=== PATIENT | male | born 1940 | race Caucasian/White ===

== ENCOUNTER 2016-11-25 21:33 | Inpatient (IN) | payer MEDICARE ==
[~2016-11-25] VITALS: Ht 190.5 cm; Wt 69.9 kg
--- NOTE | 2016-11-25 21:50 | PHYS DOC ---
Adult General Chief Complaint Chief Complaint: MECHANICAL FALL HPI HPI Patient is a 76 year old male presenting to the emergency department for evaluation of a left femoral neck fracture that was diagnosed this evening at approximately 6 PM. Reportedly patient fell down from a standing height and landed on his knees that had been complaining of more pain and not acting at his baseline. It appears that there is 3 x-rays done of his left knee one of his left hip and one of his pelvis. Patient has baseline dementia andis name but does not know much else and cannot provide any significant history. Review of Systems Review of Systems Unable to obtain due to dementia Current Medications Current Medications Current Medications Medications (Trade) Dose Ordered Sig/Dejah Start Time Stop Time Status Last Admin Dose Admin Diphtheria/ Tetanus/Acell Pertussis (Boostrix) 0.5 ml ONCE ONCE 11/25/16 22:00 11/25/16 22:01 DC 11/25/16 22:12 0.5 ML Allergies Allergies Allergies Coded Allergies Type Severity Reaction Last Updated Verified No Known Drug Allergies 11/25/16 No Physical Exam Physical Exam Constitutional: Well developed, well nourished, no acute distress, non-toxic appearance. [] HENT: Normocephalic, atraumatic Eyes: PERRLA, EOMI, conjunctiva normal, no discharge. [] Neck: Normal range of motion, no tenderness, supple, no stridor. [] Cardiovascular:Heart rate regular rhythm, no murmur [] Lungs & Thorax: Bilateral breath sounds clear to auscultation [] Abdomen: Bowel sounds normal, soft, no tenderness, no masses, no pulsatile masses. [] Skin: Skin breakdown to top of second toe and left lateral foot Back: No tenderness, no CVA tenderness. [] Extremities: Both DP pulses weak but palpable. His left foot has significant wounds especially on the top of his second toe, there is a very bad smell to it with some drainage. Pain to palpation of left hip. Neurologic: Alert and oriented X1, moves all extremities Current Patient Data Vital Signs Vital Signs Date Time Temp Pulse Resp B/P (MAP) Pulse Ox O2 Delivery O2 Flow Rate FiO2 11/25/16 21:35 99.1 97 14 148/68 (94) 100 Room Air 99.1 Lab Values Laboratory Tests Test 11/25/16 21:55 White Blood Count 6.8 x10^3/uL (4.0-11.0) Red Blood Count 2.85 x10^6/uL (4.30-5.70) L Hemoglobin 9.2 g/dL (13.0-17.5) L Hematocrit 27.4 % (39.0-53.0) L Mean Corpuscular Volume 96 fL (79-100) Mean Corpuscular Hemoglobin 32 pg (25-35) Mean Corpuscular Hemoglobin Concent 34 g/dL (31-37) Red Cell Distribution Width 14.7 % (11.5-14.5) H Platelet Count 174 x10^3/uL (140-400) Neutrophils (%) (Auto) 73 % (31-73) Lymphocytes (%) (Auto) 13 % (24-48) L Monocytes (%) (Auto) 11 % (0-9) H Eosinophils (%) (Auto) 2 % (0-3) Basophils (%) (Auto) 1 % (0-3) Neutrophils # (Auto) 5.0 x10^3uL (1.8-7.7) Lymphocytes # (Auto) 0.9 x10^3/uL (1.0-4.8) L Monocytes # (Auto) 0.8 x10^3/uL (0.0-1.1) Eosinophils # (Auto) 0.2 x10^3/uL (0.0-0.7) Basophils # (Auto) 0.0 x10^3/uL (0.0-0.2) Prothrombin Time 13.9 SEC (11.7-14.0) Prothrombin Time INR 1.1 (0.8-1.1) PTT 30 SEC (24-38) Sodium Level 138 mmol/L (136-145) Potassium Level 5.4 mmol/L (3.5-5.1) H Chloride Level 102 mmol/L (98-107) Carbon Dioxide Level 31 mmol/L (21-32) Anion Gap 5 (6-14) L Blood Urea Nitrogen 48 mg/dL (8-26) H Creatinine 1.4 mg/dL (0.7-1.3) H Estimated GFR (Cockcroft-Gault) 49.1 BUN/Creatinine Ratio 34 (6-20) H Glucose Level 144 mg/dL (70-99) H Lactic Acid Level 1.5 mmol/L (0.4-2.0) Calcium Level 8.7 mg/dL (8.5-10.1) Magnesium Level 2.4 mg/dL (1.8-2.4) Total Bilirubin 0.2 mg/dL (0.2-1.0) Aspartate Amino Transferase (AST) 18 U/L (15-37) Alanine Aminotransferase (ALT) 15 U/L (16-63) L Alkaline Phosphatase 88 U/L (46-116) Creatine Kinase 200 U/L (39-308) Total Protein 6.8 g/dL (6.4-8.2) Albumin 3.3 g/dL (3.4-5.0) L Albumin/Globulin Ratio 0.9 (1.0-1.7) L Laboratory Tests 11/25/16 21:55 Laboratory Tests 11/25/16 21:55 EKG EKG [] Radiology/Procedures Radiology/Procedures Left hip fracture on the left hip x-ray Left foot x-ray showed no abnormality Chest x-ray showed prominent aortic arch but no obvious free air pneumothorax or opacity Course & Med Decision Making Course & Med Decision Making Patient with fractured left hip. It sounds like he uses a walker some of the time per the paperwork that they sent the jail did not call report as he was supposed to be sent to [facility] but ended up coming here for unclear reasons. Patient will be admitted and treat his toe infection and consult orthopedics regarding his hip fracture. Family is not present at time of presentation. Daughter ended up coming and I spoke to her about Dr. Anne's recommendations. He said that if the patient is in significant pain he would recommend fixing the fracture but he would go and talk to daughter tomorrow morning and possibly had the patient on for a case tomorrow morning. Patient admitted in stable condition and was given Ancef for his left foot infection. Dragon Disclaimer Dragon Disclaimer This electronic medical record was generated, in whole or in part, using a voice recognition dictation system. Departure Departure Impression: Primary Impression: Hip fracture, left Additional Impressions: Infection of toe Renal insufficiency Dementia Disposition: ADMITTED INPATIENT Admitting Physician: Lucy Michaels Condition: STABLE Problem Qualifiers Primary Impression: Hip fracture, left Encounter type: initial encounter Fracture type: closed Qualified Codes: S72.002A - Fracture of unspecified part of neck of left femur, initial encounter for closed fracture PANDA MAK DO Nov 25, 2016 21:50
[2016-11-25 22:00] LABS: BASO % 1 % (0-3); EOS % 2 % (0-3); HEMATOCRIT 27.4 % (39.0-53.0); HEMOGLOBIN 9.2 g/dL (13.0-17.5); LYMPH # 0.9 x10^3/uL (1.0-4.8); LYMPH % 13 % (24-48); MEAN CORPUSCULAR HEMOGLOBIN 32 pg (25-35); MEAN CORPUSCULAR HGB CONC 34 g/dL (31-37); MEAN CORPUSCULAR VOLUME 96 fL (79-100); MONO % 11 % (0-9); NEUT % 73 % (31-73); PLATELET COUNT 174 x10^3/uL (140-400); RED BLOOD COUNT 2.85 x10^6/uL (4.30-5.70); RED CELL DISTRIBUTION WIDTH 14.7 % (11.5-14.5); WHITE BLOOD COUNT 6.8 x10^3/uL (4.0-11.0)
[2016-11-25] MEDS ORDERED: DIPHTH,PERTUSS(ACELL),TET TOX 0.5 ML DISP.SYRIN. VAX IM ONE (22:00)
[2016-11-25 22:09] LABS: INR 1.1 (0.8-1.1); PROTHROMBIN TIME PATIENT 13.9 SEC (11.7-14.0)
[2016-11-25 22:15] LABS: CALCIUM 8.7 mg/dL (8.5-10.1); CREATININE 1.4 mg/dL (0.7-1.3); GFR 49.1; POTASSIUM 5.4 mmol/L (3.5-5.1)
[2016-11-25 22:21] LABS: ALBUMIN 3.3 g/dL (3.4-5.0); ALBUMIN/GLOBULIN RATIO 0.9 (1.0-1.7); MAGNESIUM 2.4 mg/dL (1.8-2.4); TOTAL BILIRUBIN 0.2 mg/dL (0.2-1.0); TOTAL PROTEIN 6.8 g/dL (6.4-8.2)
[2016-11-25] MEDS ORDERED: fentaNYL PF VIAL 100 MCG/2 ML VIAL IV PRN (22:30)
[2016-11-25] MEDS ORDERED: ONDANSETRON PF 4 MG/2 ML VIAL. IV PRN (22:30)
[2016-11-25] MEDS: IV NORMAL SALINE 1000ML BAG 1,000 ML IV SCH (22:47)
[2016-11-25 23:45] VITALS: BP 124/61
[2016-11-26] VITALS (16 sets, daily range): BP systolic 100–144; BP diastolic 47–75
--- NOTE | 2016-11-26 03:39 | ACF ---
Admission Forms Criteria MUSCULOSKELETAL DISEASE GRG Clinical Indications for Admission to Inpatient Care (Place 'X' for any and all applicable criteria): Hospital admission is needed for appropriate care of the patient because of 1 or more of the following: [X]I. Fracture, dislocation, or other musculoskeletal injury requiring inpatient care(medical) as indicated by 1 or more of the following(4)(5)(6)(7) [ ]a) Vertebral fracture requiring observation for instability or neurologic compromise (8) [ ]b) Compartment syndrome (proven or cannot be ruled out during observation level of care) (9) [ ]c) Limb-threatening injury [ ]d) Major injury requiring inpatient stabilization such as traction initiation or external fixation before internal fixation or closure of complex or open fracture [X]e) Major injury requiring inpatient treatment after emergency or observation level care (as appropriate) [ ]f) Severe pain requiring acute inpatient management [ ]g) Injury with suspicion of abuse or neglect (eg., child, dependent elderly) [ ]II. Newly diagnosed or suspected bone, joint, or orthopedic device infection (e.g., osteomyelitis, septic arthritis) needing 1 or more of the following(1)(2)(3) [ ]a) IV antibiotics that cannot be initiated in other than inpatient setting (e.g., patient too unstable or home infusion not available) [ ]b) Device removal or replacement [ ]c) Bone or soft tissue debridement [ ]d) Joint drainage (drain placement or repetitive aspirations) [ ]III. Severe rheumatologic disease (e.g., systemic lupus erythematosus, rheumatoid arthritis) with complications or comorbidities (Also use Optimal Recovery Care Criteria or General Recovery Criteria as appropriate on the basis of predominant condition), including 1 or more of the following( 10)(11)(12)(13) [ ]a) Severe infection (e.g., TESTS SUPERINTENDENT infection, sepsis) (14) [ ]b) Respiratory complications, including 1 or more of the following : [ ]i) Pleural effusion with respiratory compromise [ ]ii) Pulmonary hypertension with congestive failure [ ]iii) Respiratory failure [ ]iv) Pulmonary hemorrhage (15) [ ]c) Hematologic disease, including 1 or more of the following: [ ]i) Coagulopathy with bleeding [ ]ii) Thrombosis with hypercoagulable state [ ]iii) Thrombotic thrombocytopenic purpura [ ]d) Cerebritis with seizures, psychosis, or other severe abnormalities [ ]e) Vertebral destruction with monitoring needed for cervical myelopathy& possible respiratory compromise [ ]f) Exacerbation that requires inpatient treatment (e.g., intravenous immunosuppression) (16) [ ]g) Acute renal failure [ ]h) Cerebritis with seizures, psychosis, Altered mental status, or other neurologic abnormalities [ ]i) Pericardial effusion with tamponade [ ]j) Vertebral destruction, with monitoring needed for cervical myelopathy and possible respiratory compromise [ ]IV. Severe vasculitis with complications or comorbidities (Also use Optimal Recovery Care Criteria General Recovery Criteria as appropriate on the basis of predominant condition), including 1 or more of the following(11)(12)(17)(18)(19)(20) [ ]a) Exacerbation that requires inpatient treatment (e.g., intravenous immunosuppression) (19)(21) [ ]b) Pulmonary hemorrhage (15) [ ]c) TESTS SUPERINTENDENT vasculitis with seizures, psychosis, Altered mental status that is severe or persistent, or other severe abnormalities (22) [ ]d) Cerebral infarction [ ]e) Gastrointestinal ischemia [ ]f) Gangrene or threatened amputation [ ]g) Renal failure (16) [ ]h) Other significant complications of vasculitis ( eg., tissue or organ ischemia, organ dysfunction ) [ ]V. Severe myopathy as indicated by 1 or more of the following (28)(29) [ ]a) New onset of airway compromise or inability to swallow [ ]b) Respiratory deterioration with observation needed for impending respiratory failure [ ]c) Exacerbation that requires inpatient treatment (e.g., intravenous immunosuppression) [ ]. Severe crystal gout (arthropathy) indicated by 1 or more of the following (23)(24) [ ]a) Severe pain requiring acute inpatient management [ ]b) Exacerbation that requires inpatient treatment (e.g., intravenous treatment) [ ]VII.Rhabdomyolysis and 1 or more of the following (25)(26)(27) [ ]a) Acute renal failure [ ]b) Need for intravenous hydration after emergency or observation level care (as appropriate) [ ]c) Inability to maintain oral hydration [ ]d) Change in mental status [ ]e) Electrolyte abnormality that remains after emergency or observation level care (as appropriate) [ ]VIII Post amputation complication, as indicated by ANY ONE of the following [ ]a) Infection [ ]b) Dehiscence [ ]c) Myodesis failure [ ]IX. Severe pain requiring acute inpatient management due to musculoskeletal condition [ ]X. Musculoskeletal Disease and ALL of the following: [ ]a) Symptom or finding for which emergency and observation care have failed or are not considered appropriate (Use General Criteria: Observation Care as appropriate) [ ]b) Presence of ANY ONE of the following [ ]i) A General Admission Criteria [ ]ii) A Pediatric General Admission Criteria The original [facility] [employer] content created by [facility] has been revised. The portions of the content which have been revised are identified through the use of italic text or in bold, and [facility] has neither reviewed nor approved the modified material. All other unmodified content is copyright [facility]. Please see references footnoted in the original [facility] edition 2016 Admission Criteria Met?: Yes JOANN GOMEZ Nov 26, 2016 03:39
[2016-11-26] MEDS ORDERED: NAPR500T3 PO (03:43)
[2016-11-26] MEDS ORDERED: TRAZ50TA15 PO (03:43)
[2016-11-26] MEDS ORDERED: ACET325T9 PO (03:43)
[2016-11-26] MEDS ORDERED: HYDR-2758 PO (03:43)
[2016-11-26] MEDS ORDERED: RIVA1PAT12 TD (03:43)
[2016-11-26] MEDS ORDERED: MAGN400O7 PO (03:43)
[2016-11-26] MEDS ORDERED: FERR324T2 PO (03:43)
[2016-11-26] MEDS ORDERED: POLY15DR28 OP (03:43)
[2016-11-26] MEDS ORDERED: ACET500T68 PO (03:43)
[2016-11-26] MEDS ORDERED: DEXT1CAP PO (03:43)
[2016-11-26] MEDS ORDERED: VERA240C2 PO (03:43)
[2016-11-26] MEDS ORDERED: LOPE2CAP PO (03:43)
[2016-11-26] MEDS ORDERED: GABA-585 PO (03:43)
[2016-11-26] MEDS ORDERED: SERT50TA PO (03:43)
[2016-11-26] MEDS ORDERED: SENN8.6T4 PO (03:43)
[2016-11-26] MEDS ORDERED: QUET25TA5 PO (03:43)
[2016-11-26] MEDS ORDERED: FAMO20TA5 PO (03:43)
[2016-11-26 04:56] LABS: BASO % 1 % (0-3); EOS % 3 % (0-3); HEMATOCRIT 23.5 % (39.0-53.0); HEMOGLOBIN 7.8 g/dL (13.0-17.5); LYMPH # 1.2 x10^3/uL (1.0-4.8); LYMPH % 20 % (24-48); MEAN CORPUSCULAR HEMOGLOBIN 32 pg (25-35); MEAN CORPUSCULAR HGB CONC 33 g/dL (31-37); MEAN CORPUSCULAR VOLUME 95 fL (79-100); MONO % 11 % (0-9); NEUT % 66 % (31-73); PLATELET COUNT 149 x10^3/uL (140-400); RED BLOOD COUNT 2.47 x10^6/uL (4.30-5.70); RED CELL DISTRIBUTION WIDTH 14.8 % (11.5-14.5); WHITE BLOOD COUNT 5.9 x10^3/uL (4.0-11.0)
[2016-11-26 05:17] LABS: CALCIUM 7.9 mg/dL (8.5-10.1); CREATININE 1.3 mg/dL (0.7-1.3); GFR 53.5; POTASSIUM 4.6 mmol/L (3.5-5.1)
[2016-11-26] MEDS ORDERED: IV RINGERS,LACTATED 1000ML 1,000 ML IV SCH (07:57)
[2016-11-26] MEDS ORDERED: MORPHINE SULFATE 2 MG/ML DISP.SYRIN. IV PRN (08:00)
[2016-11-26] MEDS ORDERED: LIDOCAINE 1% 1 ML SYRINGE. ID PRN (08:00)
[2016-11-26] MEDS ORDERED: fentaNYL PF VIAL 100 MCG/2 ML VIAL IV PRN ×2 (08:00)
[2016-11-26] MEDS ORDERED: HYDROmorphone 2 MG/ML VIAL IV PRN (08:00)
[2016-11-26] MEDS ORDERED: PROCHLORPERAZINE 10 MG/2 ML VIAL. IV PRN (08:00)
--- NOTE | 2016-11-26 08:06 | RAD ---
Left foot 3 views. History: Left foot pain after a fall 3 views were taken of the left foot. There are flexion deformities of the toes. There is no acute fracture. There is no other acute osseous abnormality. Impression: 1. Flexion deformities of the toes. 2. No acute fracture.
--- NOTE | 2016-11-26 08:08 | RAD ---
Left hip 2 views with one view pelvis. History: Pain after a fall. AP view was taken of the pelvis. There is a total joint prosthesis on the right in good position. There is no pelvic fracture noted. There is degenerative change and scoliosis in the lower lumbar spine. AP and lateral views were taken of the left hip. There is a comminuted intertrochanteric fracture with angulation and displacement. Lesser trochanter is an isolated fracture fragment. Impression: 1. Displaced angulated comminuted intertrochanteric fracture left hip
--- NOTE | 2016-11-26 08:09 | RAD ---
Portable AP chest. History: Fall, left hip fracture AP view was taken of the chest. Lungs are free of infiltrates. Heart is normal in size. The patient's taken a poor inspiration. There is no effusion. Impression: 1. No acute infiltrates.
[2016-11-26] MEDS ORDERED: ONDANSETRON PF 4 MG/2 ML VIAL. IV PRN (08:38)
[2016-11-26] MEDS ORDERED: LOPERAMIDE 2 MG CAPSULE PO PRN (08:45)
[2016-11-26] MEDS ORDERED: MAGNESIUM HYDROXIDE 2,400 MG/30 ML ORAL.SUSP. PO PRN (08:45)
[2016-11-26] MEDS ORDERED: NAPROXEN 500 MG TABLET PO PRN (08:45)
[2016-11-26] MEDS ORDERED: ACETAMINOPHEN 500 MG TABLET PO PRN (08:45)
[2016-11-26] MEDS: QUINIDINE PO SCH ×2 (09:00→21:00)
[2016-11-26] MEDS: FERROUS SULFATE 325 MG TABLET. PO SCH ×2 (09:00→17:34)
[2016-11-26] MEDS: SERTRALINE 50 MG TABLET. PO SCH (09:00)
[2016-11-26] MEDS: GABAPENTIN 100 MG CAPSULE. PO SCH ×3 (09:00→21:55)
[2016-11-26] MEDS: SENNOSIDES 8.6 MG TABLET PO SCH (09:00)
[2016-11-26] MEDS: HYDROcodone/APAP 5/325MG 1 TAB TABLET PO SCH ×2 (09:00→21:54)
[2016-11-26] MEDS: POLYVINYL ALCOHOL 1.4% OPHTH SOLUTION 15ML BOTTLE. OU SCH ×3 (09:00→21:00)
[2016-11-26] MEDS: VERAPAMIL SR 180 MG TABLET.ER. PO SCH ×2 (09:00→21:00)
[2016-11-26] MEDS: DEXTROMETHORPHAN HBR PO SCH ×2 (09:00→21:00)
--- NOTE | 2016-11-26 09:21 | PDOC1 ---
History and Physical Date of Admission Date of Admission DATE: 11/26/16 TIME: 09:15 Identification/Chief Complaint Chief Complaint fall in SNU Problems: Source Source: Caregiver, Chart review History of Present Illness History of Present Illness DTr at bedside,. Pt has advanced Lewy body dementia, SNU resident, fell in SNU, unclear mechanism late last night. No head trauma, Severe pain hip/left LE since fall, even in bed. Mostly wheelchair bound, feeds himself prior to admit, But now just in bed writhing in pain Dw ortho, planned for sx for comfort, Apparently might have been on hospice in SNU, HE is DNR DNI Dtr aware of risks and benefits of sx - including post op delirium, infection, clots, cardiac issues and even , She is fully aware and agrees to proceed Pt has hx atrial fib, 3 yrs ago, was prev on warf but off AC now,(likely bec of high risk fall and now NSR).. NSR now. Severe dementia, ROS unobtainable NO hx CAD, DM. Carl pinto HTN, Never smoker MOderate to high risk for contemplated procedure, no pre op testing needed, ok to proceed with ortho sx later addendum; pt had a prolonged 1.5 mos hospital stay after his total hip sx in [facility] some yrs ago - so dtr aware of the possible complications Past Medical History Cardiovascular: AFIB, HTN CENTRAL NERVOUS SYSTEM: Dementia Past Surgical History Past Surgical History: Total hip replacement Family History Family History: Hypertension Social History Smoke: No ALCOHOL: none Drugs: None Current Problem List Problem List Problems Medical Problems: (1) Dementia Status: Acute (2) Hip fracture, left Status: Acute (3) Infection of toe Status: Acute (4) Renal insufficiency Status: Acute Problems: Current Medications Current Medications Current Medications Diphtheria/ Tetanus/Acell Pertussis (Boostrix) 0.5 ml ONCE ONCE VAX IM Last administered on 11/25/16t 22:12; Start 11/25/16 at 22:00; Stop 11/25/16 at 22:01 ; Status DC Ondansetron HCl (Zofran) 4 mg PRN Q8HRS PRN IV NAUSEA/VOMITING; Start 11/25/16 at 22:30; Stop 11/26/16 at 08:41; Status DC Fentanyl Citrate (Fentanyl 2ml Vial) 50 mcg PRN Q2HR PRN IV PAIN Last administered on 11/25/16 23:19; Start 11/25/16 at 22:30; Stop 11/26/16 at 22:29 Sodium Chloride 1,000 ml @ 75 mls/hr [id number] IV Last administered on 22:47; Start 11/25/16 at 22:30; Stop 11/26/16 at 22:29 Cefazolin Sodium/ Dextrose 50 ml @ 100 mls/hr 1X ONCE IV Last administered on 11/25/16 22:47; Start 11/25/16 at 22:45; Stop 11/25/16 at 23:14; Status DC Fentanyl Citrate (Fentanyl 2ml Vial) 25 mcg PRN Q5MIN PRN IV MILD PAIN; Start 11/26/16 at 08:00; Stop 11/26/16 at 18:00 Fentanyl Citrate (Fentanyl 2ml Vial) 50 mcg PRN Q5MIN PRN IV MODERATE PAIN; Start 11/26/16 at 08:00; Stop 11/26/16 at 18:00 Morphine Sulfate 1 mg PRN Q10MIN PRN IV SEVERE PAIN; Start 11/26/16 at 08:00; Stop 11/26/16 at 18:00 Ringer's Solution 1,000 ml @ 30 mls/hr Q24H IV ; Start 11/26/16 at 07:57; Stop 11/26/16 at 19:56 Lidocaine HCl 2 ml PRN 1X PRN ID PRIOR TO IV START; Start 11/26/16 at 08:00; Stop 11/26/16 at 18:00 Hydromorphone HCl (Dilaudid) 0.5 mg PRN Q10MIN PRN IV SEV PAIN, Second choice; Start 11/26/16 at 08:00; Stop 11/26/16 at 18:00 Prochlorperazine Edisylate (Compazine) 5 mg PACU PRN PRN IV NAUSEA, MRX1; Start 11/26/16 at 08:00; Stop 11/26/16 at 18:00 Ondansetron HCl (Zofran) 4 mg PRN Q6HRS PRN IV NAUSEA/VOMITING; Start 11/26/16 at 08:38; Stop 11/27/16 at 08:37 Acetaminophen (Tylenol) 500 mg PRN Q6HRS PRN PO MILD PAIN / TEMP; Start at 08:45 Famotidine (Pepcid) 20 mg HS PO ; Start 11/26/16 at 21:00 Gabapentin (Neurontin) 100 mg TID PO ; Start 11/26/16 at 09:00 Acetaminophen/ Hydrocodone Bitart (Lortab 5/325) 1 tab BID PO ; Start 11/26/16 at 09:00 Loperamide HCl (Imodium) 2 mg PRN BID PRN PO DIARRHEA; Start 11/26/16 at 08:45 Magnesium Hydroxide (Milk Of Magnesia) 400 mg PRN DAILY PRN PO CONSTIPATION; Start 11/26/16 at 08:45 Naproxen (Naprosyn) 500 mg PRN BID PRN PO HEADACHE; Start 11/26/16 at 08:45 Artificial Tears (Artificial Tears) 1 drop TID OU ; Start 11/26/16 at 09:00 Quetiapine Fumarate (SEROquel) 25 mg QHS PO ; Start 11/26/16 at 21:00 Rivastigmine (Exelon) 1 patch DAILY TD ; Start 11/26/16 at 09:00 Sennosides (Senna) 8.6 mg DAILY PO ; Start 11/26/16 at 09:00 Sertraline HCl (Zoloft) 50 mg DAILY PO ; Start 11/26/16 at 09:00 Non-Formulary Medication 1 each BID PO ; Start 11/26/16 at 09:00; Status UNV Ferrous Sulfate (Feosol) 325 mg BIDWMEALS PO ; Start 11/26/16 at 09:00 Verapamil HCl (Calan Sr) 180 mg BID PO ; Start 11/26/16 at 09:00 Active Scripts Active Reported Naproxen 500 Mg Tablet 1 Tab PO PRN BID PRN Milk Of Magnesia (Magnesium Hydroxide) 400 Mg/5 Ml Oral.susp 400 Mg PO PRN DAILY PRN Loperamide (Loperamide Hcl) 2 Mg Capsule 2 Mg PO PRN BID PRN Acetaminophen 500 Mg Tablet 1 Tab PO Q6HRS Verapamil Er (Verapamil Hcl) 240 Mg Cap24h.pel 180 Mg PO DAILY Trazodone Hcl 50 Mg Tablet 1 Tab PO QHS Zoloft (Sertraline Hcl) 50 Mg Tablet 1 Tab PO DAILY Senexon (Sennosides) 8.6 Mg Tablet 8.6 Mg PO DAILY Rivastigmine 1 Each Patch.td24 1 Each TD DAILY Seroquel (Quetiapine Fumarate) 25 Mg Tablet 1 Tab PO QHS Nuedexta 20-10 Mg Capsule (Dextromethorphan Hbr/Quinidine) 1 Each Capsule 1 Each PO BID Liquitears (Polyvinyl Alcohol) 15 Ml Drops 15 Ml OP TID Hydrocodone-Apap 5-325 (Hydrocodone Bit/Acetaminophen) 1 Each Tablet 1 Tab PO BID Gabapentin 100 Mg Capsule 100 Mg PO TID Ferrous Gluconate 324 Mg Tablet 324 Mg PO TIDWMEALS Famotidine 20 Mg Tablet 20 Mg PO HS Tylenol (Acetaminophen) 325 Mg Tablet 2 Tab PO BID Allergies Allergies: Coded Allergies: No Known Drug Allergies (Unverified , 11/25/16) ROS Review of System unobtainable - severe dementia Physical Exam General: mild distress, Other (from pain, mouth breather) HEENT: EOMI Lungs: Clear to auscultation, Normal air movement Heart: S1S2, RRR, no thrills, no rubs, no gallops, no murmurs Cardiovascular: S1, S2 Abdomen: Normal bowel sounds, Soft, No tenderness, No hepatosplenomegaly, No masses Male Genitals Exam: normal genitalia, normal prostate PELVIC: Nml ext genitalia Extremities: Other (left hip externally rotated) Skin: No rashes, No breakdown, No significant lesion Vitals Vitals Vital Signs Date Time Temp Pulse Resp B/P (MAP) Pulse Ox O2 Delivery O2 Flow Rate FiO2 11/26/16 07:00 98.8 83 18 100/53 (69) 92 Room Air 98.8 Labs Labs Laboratory Tests Test 11/25/16 21:55 11/26/16 03:55 White Blood Count 6.8 x10^3/uL (4.0-11.0) 5.9 x10^3/uL (4.0-11.0) Red Blood Count 2.85 x10^6/uL (4.30-5.70) 2.47 x10^6/uL (4.30-5.70) Hemoglobin 9.2 g/dL (13.0-17.5) 7.8 g/dL (13.0-17.5) Hematocrit 27.4 % (39.0-53.0) 23.5 % (39.0-53.0) Mean Corpuscular Volume 96 fL (79-100) 95 fL (79-100) Mean Corpuscular Hemoglobin 32 pg (25-35) 32 pg (25-35) Mean Corpuscular Hemoglobin Concent 34 g/dL (31-37) 33 g/dL (31-37) Red Cell Distribution Width 14.7 % (11.5-14.5) 14.8 % (11.5-14.5) Platelet Count 174 x10^3/uL (140-400) 149 x10^3/uL (140-400) Neutrophils (%) (Auto) 73 % (31-73) 66 % (31-73) Lymphocytes (%) (Auto) 13 % (24-48) 20 % (24-48) Monocytes (%) (Auto) 11 % (0-9) 11 % (0-9) Eosinophils (%) (Auto) 2 % (0-3) 3 % (0-3) Basophils (%) (Auto) 1 % (0-3) 1 % (0-3) Neutrophils # (Auto) 5.0 x10^3uL (1.8-7.7) 3.9 x10^3uL (1.8-7.7) Lymphocytes # (Auto) 0.9 x10^3/uL (1.0-4.8) 1.2 x10^3/uL (1.0-4.8) Monocytes # (Auto) 0.8 x10^3/uL (0.0-1.1) 0.7 x10^3/uL (0.0-1.1) Eosinophils # (Auto) 0.2 x10^3/uL (0.0-0.7) 0.2 x10^3/uL (0.0-0.7) Basophils # (Auto) 0.0 x10^3/uL (0.0-0.2) 0.0 x10^3/uL (0.0-0.2) Prothrombin Time 13.9 SEC (11.7-14.0) Prothromb Time International Ratio 1.1 (0.8-1.1) Activated Partial Thromboplast Time 30 SEC (24-38) Sodium Level 138 mmol/L (136-145) 141 mmol/L (136-145) Potassium Level 5.4 mmol/L (3.5-5.1) 4.6 mmol/L (3.5-5.1) Chloride Level 102 mmol/L (98-107) 107 mmol/L (98-107) Carbon Dioxide Level 31 mmol/L (21-32) 31 mmol/L (21-32) Anion Gap 5 (6-14) 3 (6-14) Blood Urea Nitrogen 48 mg/dL (8-26) 50 mg/dL (8-26) Creatinine 1.4 mg/dL (0.7-1.3) 1.3 mg/dL (0.7-1.3) Estimated GFR (Cockcroft-Gault) 49.1 53.5 BUN/Creatinine Ratio 34 (6-20) Glucose Level 144 mg/dL (70-99) 129 mg/dL (70-99) Lactic Acid Level 1.5 mmol/L (0.4-2.0) Calcium Level 8.7 mg/dL (8.5-10.1) 7.9 mg/dL (8.5-10.1) Magnesium Level 2.4 mg/dL (1.8-2.4) Total Bilirubin 0.2 mg/dL (0.2-1.0) Aspartate Amino Transf (AST/SGOT) 18 U/L (15-37) Alanine Aminotransferase (ALT/SGPT) 15 U/L (16-63) Alkaline Phosphatase 88 U/L (46-116) Creatine Kinase 200 U/L (39-308) Total Protein 6.8 g/dL (6.4-8.2) Albumin 3.3 g/dL (3.4-5.0) Albumin/Globulin Ratio 0.9 (1.0-1.7) Laboratory Tests Test 11/25/16 21:55 11/26/16 03:55 White Blood Count 6.8 x10^3/uL (4.0-11.0) 5.9 x10^3/uL (4.0-11.0) Red Blood Count 2.85 x10^6/uL (4.30-5.70) 2.47 x10^6/uL (4.30-5.70) Hemoglobin 9.2 g/dL (13.0-17.5) 7.8 g/dL (13.0-17.5) Hematocrit 27.4 % (39.0-53.0) 23.5 % (39.0-53.0) Mean Corpuscular Volume 96 fL (79-100) 95 fL (79-100) Mean Corpuscular Hemoglobin 32 pg (25-35) 32 pg (25-35) Mean Corpuscular Hemoglobin Concent 34 g/dL (31-37) 33 g/dL (31-37) Red Cell Distribution Width 14.7 % (11.5-14.5) 14.8 % (11.5-14.5) Platelet Count 174 x10^3/uL (140-400) 149 x10^3/uL (140-400) Neutrophils (%) (Auto) 73 % (31-73) 66 % (31-73) Lymphocytes (%) (Auto) 13 % (24-48) 20 % (24-48) Monocytes (%) (Auto) 11 % (0-9) 11 % (0-9) Eosinophils (%) (Auto) 2 % (0-3) 3 % (0-3) Basophils (%) (Auto) 1 % (0-3) 1 % (0-3) Neutrophils # (Auto) 5.0 x10^3uL (1.8-7.7) 3.9 x10^3uL (1.8-7.7) Lymphocytes # (Auto) 0.9 x10^3/uL (1.0-4.8) 1.2 x10^3/uL (1.0-4.8) Monocytes # (Auto) 0.8 x10^3/uL (0.0-1.1) 0.7 x10^3/uL (0.0-1.1) Eosinophils # (Auto) 0.2 x10^3/uL (0.0-0.7) 0.2 x10^3/uL (0.0-0.7) Basophils # (Auto) 0.0 x10^3/uL (0.0-0.2) 0.0 x10^3/uL (0.0-0.2) Prothrombin Time 13.9 SEC (11.7-14.0) Prothromb Time International Ratio 1.1 (0.8-1.1) Activated Partial Thromboplast Time 30 SEC (24-38) Sodium Level 138 mmol/L (136-145) 141 mmol/L (136-145) Potassium Level 5.4 mmol/L (3.5-5.1) 4.6 mmol/L (3.5-5.1) Chloride Level 102 mmol/L (98-107) 107 mmol/L (98-107) Carbon Dioxide Level 31 mmol/L (21-32) 31 mmol/L (21-32) Anion Gap 5 (6-14) 3 (6-14) Blood Urea Nitrogen 48 mg/dL (8-26) 50 mg/dL (8-26) Creatinine 1.4 mg/dL (0.7-1.3) 1.3 mg/dL (0.7-1.3) Estimated GFR (Cockcroft-Gault) 49.1 53.5 BUN/Creatinine Ratio 34 (6-20) Glucose Level 144 mg/dL (70-99) 129 mg/dL (70-99) Lactic Acid Level 1.5 mmol/L (0.4-2.0) Calcium Level 8.7 mg/dL (8.5-10.1) 7.9 mg/dL (8.5-10.1) Magnesium Level 2.4 mg/dL (1.8-2.4) Total Bilirubin 0.2 mg/dL (0.2-1.0) Aspartate Amino Transf (AST/SGOT) 18 U/L (15-37) Alanine Aminotransferase (ALT/SGPT) 15 U/L (16-63) Alkaline Phosphatase 88 U/L (46-116) Creatine Kinase 200 U/L (39-308) Total Protein 6.8 g/dL (6.4-8.2) Albumin 3.3 g/dL (3.4-5.0) Albumin/Globulin Ratio 0.9 (1.0-1.7) VTE Prophylaxis Ordered VTE Prophylaxis Devices: Yes VTE Pharmacological Prophylaxi: Yes Assessment/Plan Assessment/Plan 1. Left hip fx, traumatic, mechanical after fall in SNU 2. Severe LEwy body dementia 3. GEn weaknes, FTT, acute pain sec to above 4. DNR/DNI on hospice PLAN: Admit OR later for comfort My pre op assessment as above Dw RN, ortho and dtr BONI AREVALO MD Nov 26, 2016 09:21
[2016-11-26] MEDS ORDERED: ceFAZolin 1GM IVPB FOR OMNI 1 GM/50 ML BAG IV ONE (09:30)
[2016-11-26] MEDS ORDERED: ONDANSETRON PF 4 MG/2 ML VIAL. ONE (09:43)
[2016-11-26] MEDS ORDERED: SEVOFLURANE 61 TO 120 MINUTES. IH ONE (09:43)
[2016-11-26] MEDS ORDERED: LIDOCAINE 2% PF Vial for OR 5 ML VIAL. ONE (09:43)
[2016-11-26] MEDS ORDERED: fentaNYL PF VIAL 100 MCG/2 ML VIAL ONE (09:43)
[2016-11-26] MEDS ORDERED: PROPOFOL 20 ML IV ONE (09:43)
[2016-11-26] MEDS ORDERED: DEXAMETHASONE SOD PHOS 20 MG/5 ML VIAL. ONE (09:43)
[2016-11-26] MEDS ORDERED: ALBUMIN HUMAN 5% 0 ML IV ONE (10:42)
[2016-11-26] MEDS: IV NORMAL SALINE 1000ML BAG 1,000 ML IV SCH (11:50)
[2016-11-26] MEDS ORDERED: ePHEDrine PF IN SALINE 50 MG/5 ML DISP.SYRIN IV ONE (11:58)
--- NOTE | 2016-11-26 13:38 | PDOC ---
BRIEF OPERATIVE NOTE Date: Nov 26, 2016 Pre-Op Diagnosis Left intertrochanteric hip fracture Post-Op Diagnosis Same Procedure Performed Operative reduction internal fixation left intertrochanteric hip fracture with intramedullary nail fixation Surgeon Omid Anesthesiologist Jeremy Anesthesia Type: General Blood Loss 150 mL Findings Above Complications None OPerative Note Operative indications: Patient is a 76-year-old male on hospice care secondary to severe dementia who sustained a left hip fracture a few days ago and with nonoperative treatment has been noted to be in severe pain with any type of movement or transfers. He was minimally ambulatory preinjury however he grimaces and cries out even with basic movements and transfers. His daughter who accompanies him is very concerned with his pain with these minimal daily activities and we discussed the injury reviewing x-rays and possible nonoperative treatment of traction and bed rest versus surgical stabilization to allow him comfort for his minimal movement and transfers with daily activities. She is certainly aware that there are surgical risks in fact stated that from a previous hip fracture when he got a right total hip arthroplasty done stated that he started to go downhill cognitive function cespedes after that anesthesia and recognizes that that among other medical risks are present including the possibility of non-healing infection blood loss nerve or blood vessel damage among others all her questions were answered and she agrees to proceed with surgical evaluation and treatment for stabilization of his left femur fracture. Operative text: Patient was identified procedure verified patient was placed on the Winter fracture table left leg placed in traction well leg placed that with the leg blanc and all bony prominences were well-padded reduction maneuver and traction was carried out to achieve satisfactory reduction under fluoroscopic guidance and the left hip was prepped and draped in standard sterile fashion. After timeout was performed patient procedure identified and verified, an incision was made just proximal to the greater trochanteric entry point where he had significant comminution present. Entry awl was placed along with a long guidewire and reaming was carried out up to a size 14 and a size 13 x 20 cm short [employer] nail from [employer] was advanced an incision was made laterally to place a guidewire up the center of the femoral neck and while measurement was carried out to about 110 mm length a 105 mm lag screw and matching compression screw were selected to achieve a desired approximately 5 mm or little bit more compression. The lateral cortex was first broached and the antirotation device placed lag screw was drilled and a 105 mm lag screw was placed compression screw was placed gave excellent fixation with good alignment noted on AP and lateral fluoroscopic views. 40 mm length distal locking screw was then placed to contain rotation and all reduction and hardware placement were checked under multiple fluoroscopic views. Thorough irrigation carried out normal saline solution fascia was closed with #1 Vicryl suture subcutaneous closure with buried 2-0 Vicryl suture skin closure with mateo sterile dressings were applied patient was returned to recovery room in stable condition having tolerated the procedure well BART ROCHA MD Nov 26, 2016 13:38
[2016-11-26 13:48] LABS: HEMOGLOBIN 8.4 g/dL (13.0-17.5); RED BLOOD COUNT 2.62 x10^6/uL (4.30-5.70); RED CELL DISTRIBUTION WIDTH 14.3 % (11.5-14.5); WHITE BLOOD COUNT 7.6 x10^3/uL (4.0-11.0)
[2016-11-26] MEDS: RIVASTIGMINE 9.5MG PATCH. TD SCH (17:14)
[2016-11-26] MEDS: QUEtiapine 25 MG TABLET. PO SCH (21:54)
[2016-11-26] MEDS: FAMOTIDINE 20 MG TABLET. PO SCH (21:55)
[2016-11-27 00:20] VITALS: BP 110/53
[2016-11-27 07:00] VITALS: BP 129/63
--- NOTE | 2016-11-27 07:51 | PDOC ---
PROGRESS NOTES Subjective Subjective Problems overnight: More alert today currently getting blood drawn Objective Vital Signs Vital Signs Date Time Temp Pulse Resp B/P (MAP) Pulse Ox O2 Delivery O2 Flow Rate FiO2 11/27/16 03:00 Nasal Cannula 2.0 11/27/16 00:20 98.6 90 18 110/53 98.6 11/26/16 23:00 95 Physical Exam Left hip dressing clean dry intact currently compartment soft moving toes and ankles spontaneously. Has small area of left heel ulcer unchanged from preoperatively and toe dressings intact Labs Laboratory Tests Test 11/25/16 21:55 11/26/16 02:00 11/26/16 03:55 11/26/16 13:45 White Blood Count 6.8 x10^3/uL (4.0-11.0) 5.9 x10^3/uL (4.0-11.0) 7.6 x10^3/uL (4.0-11.0) Red Blood Count 2.85 x10^6/uL (4.30-5.70) 2.47 x10^6/uL (4.30-5.70) 2.62 x10^6/uL (4.30-5.70) Hemoglobin 9.2 g/dL (13.0-17.5) 7.8 g/dL (13.0-17.5) 8.4 g/dL (13.0-17.5) Hematocrit 27.4 % (39.0-53.0) 23.5 % (39.0-53.0) 25.0 % (39.0-53.0) Mean Corpuscular Volume 96 fL (79-100) 95 fL (79-100) 96 fL (79-100) Mean Corpuscular Hemoglobin 32 pg (25-35) 32 pg (25-35) 32 pg (25-35) Mean Corpuscular Hemoglobin Concent 34 g/dL (31-37) 33 g/dL (31-37) 34 g/dL (31-37) Red Cell Distribution Width 14.7 % (11.5-14.5) 14.8 % (11.5-14.5) 14.3 % (11.5-14.5) Platelet Count 174 x10^3/uL (140-400) 149 x10^3/uL (140-400) 145 x10^3/uL (140-400) Neutrophils (%) (Auto) 73 % (31-73) 66 % (31-73) Lymphocytes (%) (Auto) 13 % (24-48) 20 % (24-48) Monocytes (%) (Auto) 11 % (0-9) 11 % (0-9) Eosinophils (%) (Auto) 2 % (0-3) 3 % (0-3) Basophils (%) (Auto) 1 % (0-3) 1 % (0-3) Neutrophils # (Auto) 5.0 x10^3uL (1.8-7.7) 3.9 x10^3uL (1.8-7.7) Lymphocytes # (Auto) 0.9 x10^3/uL (1.0-4.8) 1.2 x10^3/uL (1.0-4.8) Monocytes # (Auto) 0.8 x10^3/uL (0.0-1.1) 0.7 x10^3/uL (0.0-1.1) Eosinophils # (Auto) 0.2 x10^3/uL (0.0-0.7) 0.2 x10^3/uL (0.0-0.7) Basophils # (Auto) 0.0 x10^3/uL (0.0-0.2) 0.0 x10^3/uL (0.0-0.2) Prothrombin Time 13.9 SEC (11.7-14.0) Prothromb Time International Ratio 1.1 (0.8-1.1) Activated Partial Thromboplast Time 30 SEC (24-38) Sodium Level 138 mmol/L (136-145) 141 mmol/L (136-145) Potassium Level 5.4 mmol/L (3.5-5.1) 4.6 mmol/L (3.5-5.1) Chloride Level 102 mmol/L (98-107) 107 mmol/L (98-107) Carbon Dioxide Level 31 mmol/L (21-32) 31 mmol/L (21-32) Anion Gap 5 (6-14) 3 (6-14) Blood Urea Nitrogen 48 mg/dL (8-26) 50 mg/dL (8-26) Creatinine 1.4 mg/dL (0.7-1.3) 1.3 mg/dL (0.7-1.3) Estimated GFR (Cockcroft-Gault) 49.1 53.5 BUN/Creatinine Ratio 34 (6-20) Glucose Level 144 mg/dL (70-99) 129 mg/dL (70-99) Lactic Acid Level 1.5 mmol/L (0.4-2.0) Calcium Level 8.7 mg/dL (8.5-10.1) 7.9 mg/dL (8.5-10.1) Magnesium Level 2.4 mg/dL (1.8-2.4) Total Bilirubin 0.2 mg/dL (0.2-1.0) Aspartate Amino Transf (AST/SGOT) 18 U/L (15-37) Alanine Aminotransferase (ALT/SGPT) 15 U/L (16-63) Alkaline Phosphatase 88 U/L (46-116) Creatine Kinase 200 U/L (39-308) Total Protein 6.8 g/dL (6.4-8.2) Albumin 3.3 g/dL (3.4-5.0) Albumin/Globulin Ratio 0.9 (1.0-1.7) Nasal Screen MRSA (PCR) Negative (Negative) Laboratory Tests Test 11/26/16 13:45 White Blood Count 7.6 x10^3/uL (4.0-11.0) Red Blood Count 2.62 x10^6/uL (4.30-5.70) Hemoglobin 8.4 g/dL (13.0-17.5) Hematocrit 25.0 % (39.0-53.0) Mean Corpuscular Volume 96 fL (79-100) Mean Corpuscular Hemoglobin 32 pg (25-35) Mean Corpuscular Hemoglobin Concent 34 g/dL (31-37) Red Cell Distribution Width 14.3 % (11.5-14.5) Platelet Count 145 x10^3/uL (140-400) Assessment Assessment POD# [1], S/P [ORIF left intertrochanteric hip fracture] Problems: Plan Plan of Care Bleeding and drainage from left hip wound resolved from yesterday CBC pending blood available Redress left heel and pad with boots for protection BART ROCHA MD Nov 27, 2016 07:51
[2016-11-27 08:02] LABS: BASO % 0 % (0-3); EOS % 1 % (0-3); HEMATOCRIT 23.2 % (39.0-53.0); LYMPH # 1.1 x10^3/uL (1.0-4.8); LYMPH % 20 % (24-48); MEAN CORPUSCULAR HEMOGLOBIN 32 pg (25-35); MEAN CORPUSCULAR HGB CONC 34 g/dL (31-37); MEAN CORPUSCULAR VOLUME 93 fL (79-100); MONO % 15 % (0-9); NEUT % 64 % (31-73); PLATELET COUNT 146 x10^3/uL (140-400); RED BLOOD COUNT 2.49 x10^6/uL (4.30-5.70); RED CELL DISTRIBUTION WIDTH 14.8 % (11.5-14.5); WHITE BLOOD COUNT 5.6 x10^3/uL (4.0-11.0)
[2016-11-27 08:07] LABS: CALCIUM 8.5 mg/dL (8.5-10.1); CREATININE 0.9 mg/dL (0.7-1.3); GFR 81.8; POTASSIUM 4.6 mmol/L (3.5-5.1)
[2016-11-27] MEDS: DEXTROMETHORPHAN HBR PO SCH (09:00)
[2016-11-27] MEDS: QUINIDINE PO SCH (09:00)
[2016-11-27] MEDS: VERAPAMIL SR 180 MG TABLET.ER. PO SCH ×2 (09:00→20:28)
[2016-11-27] MEDS: RIVASTIGMINE 9.5MG PATCH. TD SCH (09:17)
[2016-11-27] MEDS: HYDROcodone/APAP 5/325MG 1 TAB TABLET PO SCH ×2 (09:18→20:28)
[2016-11-27] MEDS: SENNOSIDES 8.6 MG TABLET PO SCH (09:18)
[2016-11-27] MEDS: FERROUS SULFATE 325 MG TABLET. PO SCH ×2 (09:18→17:12)
[2016-11-27] MEDS: GABAPENTIN 100 MG CAPSULE. PO SCH ×3 (09:19→20:28)
[2016-11-27] MEDS: SERTRALINE 50 MG TABLET. PO SCH (09:19)
[2016-11-27] MEDS: POLYVINYL ALCOHOL 1.4% OPHTH SOLUTION 15ML BOTTLE. OU SCH ×3 (09:32→20:28)
--- NOTE | 2016-11-27 09:52 | PDOC ---
PROGRESS NOTES Chief Complaint Chief Complaint 1. Left hip fx, traumatic, mechanical after fall in SNU 2. Severe LEwy body dementia 3. GEn weaknes, FTT, acute pain sec to above 4. DNR/DNI on hospice 5. Pressure sores/hell,. foot 6. Acute blood loss anemia, post op History of Present Illness History of Present Illness Doing actually way better in mentation today POD # 1 NOt oriented to time and place but able to answer simple questions Ate decent breakfast with help POst op labs good HAd some bleeding from post op site last night - did get 1 pRBC overnight, Hgb 8 today BP/VS good NEw today: Pressure wounds on feet - I am not impressed they look infected BUt will swab and check ESR NO fevers, no white ct - not on any antibiotics but did get cefazolin pre op SNU resident and is bed ridden and on hospice pLAN: Swab wounds WOund care Check ESR Special boots to keep foot off Dw RN BAck to SNU on dc Vitals Vitals Vital Signs Date Time Temp Pulse Resp B/P (MAP) Pulse Ox O2 Delivery O2 Flow Rate FiO2 11/27/16 09:18 20 Nasal Cannula 11/27/16 07:00 97.7 68 129/63 (85) 98 2.0 97.7 Physical Exam General: mild distress, Other (from pain, mouth breather) Heart: Regular rate Lungs: Clear Abdomen: Normal bowel sounds, Soft, No tenderness, No hepatosplenomegaly, No masses Extremities: Other (left hip externally rotated) Skin: No rashes, No breakdown, No significant lesion Labs LABS Laboratory Tests Test 11/26/16 13:45 11/27/16 07:30 White Blood Count 7.6 x10^3/uL (4.0-11.0) 5.6 x10^3/uL (4.0-11.0) Red Blood Count 2.62 x10^6/uL (4.30-5.70) 2.49 x10^6/uL (4.30-5.70) Hemoglobin 8.4 g/dL (13.0-17.5) 8.0 g/dL (13.0-17.5) Hematocrit 25.0 % (39.0-53.0) 23.2 % (39.0-53.0) Mean Corpuscular Volume 96 fL (79-100) 93 fL (79-100) Mean Corpuscular Hemoglobin 32 pg (25-35) 32 pg (25-35) Mean Corpuscular Hemoglobin Concent 34 g/dL (31-37) 34 g/dL (31-37) Red Cell Distribution Width 14.3 % (11.5-14.5) 14.8 % (11.5-14.5) Platelet Count 145 x10^3/uL (140-400) 146 x10^3/uL (140-400) Neutrophils (%) (Auto) 64 % (31-73) Lymphocytes (%) (Auto) 20 % (24-48) Monocytes (%) (Auto) 15 % (0-9) Eosinophils (%) (Auto) 1 % (0-3) Basophils (%) (Auto) 0 % (0-3) Neutrophils # (Auto) 3.6 x10^3uL (1.8-7.7) Lymphocytes # (Auto) 1.1 x10^3/uL (1.0-4.8) Monocytes # (Auto) 0.9 x10^3/uL (0.0-1.1) Eosinophils # (Auto) 0.0 x10^3/uL (0.0-0.7) Basophils # (Auto) 0.0 x10^3/uL (0.0-0.2) Sodium Level 140 mmol/L (136-145) Potassium Level 4.6 mmol/L (3.5-5.1) Chloride Level 105 mmol/L (98-107) Carbon Dioxide Level 30 mmol/L (21-32) Anion Gap 5 (6-14) Blood Urea Nitrogen 33 mg/dL (8-26) Creatinine 0.9 mg/dL (0.7-1.3) Estimated GFR (Cockcroft-Gault) 81.8 Glucose Level 111 mg/dL (70-99) Calcium Level 8.5 mg/dL (8.5-10.1) Review of Systems Review of Systems limited - advance lewy body dementia Assessment and Plan Assessmemt and Plan Problems Medical Problems: (1) Dementia Status: Acute (2) Hip fracture, left Status: Acute (3) Infection of toe Status: Acute (4) Renal insufficiency Status: Acute Problems: Comment Review of Relevant I have reviewed the following items temo (where applicable) has been applied. Labs Laboratory Tests Test 11/25/16 21:55 11/26/16 02:00 11/26/16 03:55 11/26/16 13:45 White Blood Count 6.8 x10^3/uL (4.0-11.0) 5.9 x10^3/uL (4.0-11.0) 7.6 x10^3/uL (4.0-11.0) Red Blood Count 2.85 x10^6/uL (4.30-5.70) 2.47 x10^6/uL (4.30-5.70) 2.62 x10^6/uL (4.30-5.70) Hemoglobin 9.2 g/dL (13.0-17.5) 7.8 g/dL (13.0-17.5) 8.4 g/dL (13.0-17.5) Hematocrit 27.4 % (39.0-53.0) 23.5 % (39.0-53.0) 25.0 % (39.0-53.0) Mean Corpuscular Volume 96 fL (79-100) 95 fL (79-100) 96 fL (79-100) Mean Corpuscular Hemoglobin 32 pg (25-35) 32 pg (25-35) 32 pg (25-35) Mean Corpuscular Hemoglobin Concent 34 g/dL (31-37) 33 g/dL (31-37) 34 g/dL (31-37) Red Cell Distribution Width 14.7 % (11.5-14.5) 14.8 % (11.5-14.5) 14.3 % (11.5-14.5) Platelet Count 174 x10^3/uL (140-400) 149 x10^3/uL (140-400) 145 x10^3/uL (140-400) Neutrophils (%) (Auto) 73 % (31-73) 66 % (31-73) Lymphocytes (%) (Auto) 13 % (24-48) 20 % (24-48) Monocytes (%) (Auto) 11 % (0-9) 11 % (0-9) Eosinophils (%) (Auto) 2 % (0-3) 3 % (0-3) Basophils (%) (Auto) 1 % (0-3) 1 % (0-3) Neutrophils # (Auto) 5.0 x10^3uL (1.8-7.7) 3.9 x10^3uL (1.8-7.7) Lymphocytes # (Auto) 0.9 x10^3/uL (1.0-4.8) 1.2 x10^3/uL (1.0-4.8) Monocytes # (Auto) 0.8 x10^3/uL (0.0-1.1) 0.7 x10^3/uL (0.0-1.1) Eosinophils # (Auto) 0.2 x10^3/uL (0.0-0.7) 0.2 x10^3/uL (0.0-0.7) Basophils # (Auto) 0.0 x10^3/uL (0.0-0.2) 0.0 x10^3/uL (0.0-0.2) Prothrombin Time 13.9 SEC (11.7-14.0) Prothromb Time International Ratio 1.1 (0.8-1.1) Activated Partial Thromboplast Time 30 SEC (24-38) Sodium Level 138 mmol/L (136-145) 141 mmol/L (136-145) Potassium Level 5.4 mmol/L (3.5-5.1) 4.6 mmol/L (3.5-5.1) Chloride Level 102 mmol/L (98-107) 107 mmol/L (98-107) Carbon Dioxide Level 31 mmol/L (21-32) 31 mmol/L (21-32) Anion Gap 5 (6-14) 3 (6-14) Blood Urea Nitrogen 48 mg/dL (8-26) 50 mg/dL (8-26) Creatinine 1.4 mg/dL (0.7-1.3) 1.3 mg/dL (0.7-1.3) Estimated GFR (Cockcroft-Gault) 49.1 53.5 BUN/Creatinine Ratio 34 (6-20) Glucose Level 144 mg/dL (70-99) 129 mg/dL (70-99) Lactic Acid Level 1.5 mmol/L (0.4-2.0) Calcium Level 8.7 mg/dL (8.5-10.1) 7.9 mg/dL (8.5-10.1) Magnesium Level 2.4 mg/dL (1.8-2.4) Total Bilirubin 0.2 mg/dL (0.2-1.0) Aspartate Amino Transf (AST/SGOT) 18 U/L (15-37) Alanine Aminotransferase (ALT/SGPT) 15 U/L (16-63) Alkaline Phosphatase 88 U/L (46-116) Creatine Kinase 200 U/L (39-308) Total Protein 6.8 g/dL (6.4-8.2) Albumin 3.3 g/dL (3.4-5.0) Albumin/Globulin Ratio 0.9 (1.0-1.7) Nasal Screen MRSA (PCR) Negative (Negative) Test 11/27/16 07:30 White Blood Count 5.6 x10^3/uL (4.0-11.0) Red Blood Count 2.49 x10^6/uL (4.30-5.70) Hemoglobin 8.0 g/dL (13.0-17.5) Hematocrit 23.2 % (39.0-53.0) Mean Corpuscular Volume 93 fL (79-100) Mean Corpuscular Hemoglobin 32 pg (25-35) Mean Corpuscular Hemoglobin Concent 34 g/dL (31-37) Red Cell Distribution Width 14.8 % (11.5-14.5) Platelet Count 146 x10^3/uL (140-400) Neutrophils (%) (Auto) 64 % (31-73) Lymphocytes (%) (Auto) 20 % (24-48) Monocytes (%) (Auto) 15 % (0-9) Eosinophils (%) (Auto) 1 % (0-3) Basophils (%) (Auto) 0 % (0-3) Neutrophils # (Auto) 3.6 x10^3uL (1.8-7.7) Lymphocytes # (Auto) 1.1 x10^3/uL (1.0-4.8) Monocytes # (Auto) 0.9 x10^3/uL (0.0-1.1) Eosinophils # (Auto) 0.0 x10^3/uL (0.0-0.7) Basophils # (Auto) 0.0 x10^3/uL (0.0-0.2) Sodium Level 140 mmol/L (136-145) Potassium Level 4.6 mmol/L (3.5-5.1) Chloride Level 105 mmol/L (98-107) Carbon Dioxide Level 30 mmol/L (21-32) Anion Gap 5 (6-14) Blood Urea Nitrogen 33 mg/dL (8-26) Creatinine 0.9 mg/dL (0.7-1.3) Estimated GFR (Cockcroft-Gault) 81.8 Glucose Level 111 mg/dL (70-99) Calcium Level 8.5 mg/dL (8.5-10.1) Laboratory Tests Test 11/26/16 13:45 11/27/16 07:30 White Blood Count 7.6 x10^3/uL (4.0-11.0) 5.6 x10^3/uL (4.0-11.0) Red Blood Count 2.62 x10^6/uL (4.30-5.70) 2.49 x10^6/uL (4.30-5.70) Hemoglobin 8.4 g/dL (13.0-17.5) 8.0 g/dL (13.0-17.5) Hematocrit 25.0 % (39.0-53.0) 23.2 % (39.0-53.0) Mean Corpuscular Volume 96 fL (79-100) 93 fL (79-100) Mean Corpuscular Hemoglobin 32 pg (25-35) 32 pg (25-35) Mean Corpuscular Hemoglobin Concent 34 g/dL (31-37) 34 g/dL (31-37) Red Cell Distribution Width 14.3 % (11.5-14.5) 14.8 % (11.5-14.5) Platelet Count 145 x10^3/uL (140-400) 146 x10^3/uL (140-400) Neutrophils (%) (Auto) 64 % (31-73) Lymphocytes (%) (Auto) 20 % (24-48) Monocytes (%) (Auto) 15 % (0-9) Eosinophils (%) (Auto) 1 % (0-3) Basophils (%) (Auto) 0 % (0-3) Neutrophils # (Auto) 3.6 x10^3uL (1.8-7.7) Lymphocytes # (Auto) 1.1 x10^3/uL (1.0-4.8) Monocytes # (Auto) 0.9 x10^3/uL (0.0-1.1) Eosinophils # (Auto) 0.0 x10^3/uL (0.0-0.7) Basophils # (Auto) 0.0 x10^3/uL (0.0-0.2) Sodium Level 140 mmol/L (136-145) Potassium Level 4.6 mmol/L (3.5-5.1) Chloride Level 105 mmol/L (98-107) Carbon Dioxide Level 30 mmol/L (21-32) Anion Gap 5 (6-14) Blood Urea Nitrogen 33 mg/dL (8-26) Creatinine 0.9 mg/dL (0.7-1.3) Estimated GFR (Cockcroft-Gault) 81.8 Glucose Level 111 mg/dL (70-99) Calcium Level 8.5 mg/dL (8.5-10.1) Microbiology 11/25/16 Blood Culture - Preliminary, Resulted NO GROWTH AFTER 1 DAY Medications Current Medications Diphtheria/ Tetanus/Acell Pertussis (Boostrix) 0.5 ml ONCE ONCE VAX IM Last administered on 11/25/16 22:12; Start 11/25/16 at 22:00; Stop 11/25/16 at 22:01 ; Status DC Ondansetron HCl (Zofran) 4 mg PRN Q8HRS PRN IV NAUSEA/VOMITING; Start 11/25/16 at 22:30; Stop 11/26/16 at 08:41; Status DC Fentanyl Citrate (Fentanyl 2ml Vial) 50 mcg PRN Q2HR PRN IV PAIN Last administered on 11/25/16 23:19; Start 11/25/16 at 22:30; Stop 11/26/16 at 22:29 ; Status DC Sodium Chloride 1,000 ml @ 75 mls/hr [id number] IV Last administered on 22:47; Start 11/25/16 at 22:30; Stop 11/26/16 at 22:29; Status DC Cefazolin Sodium/ Dextrose 50 ml @ 100 mls/hr 1X ONCE IV Last administered on 11/25/16 22:47; Start 11/25/16 at 22:45; Stop 11/25/16 at 23:14; Status DC Fentanyl Citrate (Fentanyl 2ml Vial) 25 mcg PRN Q5MIN PRN IV MILD PAIN Last administered on 11/26/16 14:07; Start 11/26/16 at 08:00; Stop 11/26/16 at 18:00 ; Status DC Fentanyl Citrate (Fentanyl 2ml Vial) 50 mcg PRN Q5MIN PRN IV MODERATE PAIN; Start 11/26/16 at 08:00; Stop 11/26/16 at 18:00; Status DC Morphine Sulfate 1 mg PRN Q10MIN PRN IV SEVERE PAIN; Start 11/26/16 at 08:00; Stop 11/26/16 at 18:00; Status DC Ringer's Solution 1,000 ml @ 30 mls/hr Q24H IV ; Start 11/26/16 at 07:57; Stop 11/26/16 at 19:56; Status DC Lidocaine HCl 2 ml PRN 1X PRN ID PRIOR TO IV START; Start 11/26/16 at 08:00; Stop 11/26/16 at 18:00; Status DC Hydromorphone HCl (Dilaudid) 0.5 mg PRN Q10MIN PRN IV SEV PAIN, Second choice; Start 11/26/16 at 08:00; Stop 11/26/16 at 18:00; Status DC Prochlorperazine Edisylate (Compazine) 5 mg PACU PRN PRN IV NAUSEA, MRX1; Start 11/26/16 at 08:00; Stop 11/26/16 at 18:00; Status DC Ondansetron HCl (Zofran) 4 mg PRN Q6HRS PRN IV NAUSEA/VOMITING; Start 11/26/16 at 08:38; Stop 11/27/16 at 08:37; Status DC Acetaminophen (Tylenol) 500 mg PRN Q6HRS PRN PO MILD PAIN / TEMP; Start at 08:45 Famotidine (Pepcid) 20 mg HS PO Last administered on 11/26/16 21:55; Start at 21:00 Gabapentin (Neurontin) 100 mg TID PO Last administered on 11/27/16 09:19; Start 11/26/16 at 09:00 Acetaminophen/ Hydrocodone Bitart (Lortab 5/325) 1 tab BID PO Last administered on 11/27/16 09:18; Start 11/26/16 at 09:00 Loperamide HCl (Imodium) 2 mg PRN BID PRN PO DIARRHEA; Start 11/26/16 at 08:45 Magnesium Hydroxide (Milk Of Magnesia) 400 mg PRN DAILY PRN PO CONSTIPATION; Start 11/26/16 at 08:45 Naproxen (Naprosyn) 500 mg PRN BID PRN PO HEADACHE; Start 11/26/16 at 08:45 Artificial Tears (Artificial Tears) 1 drop TID OU Last administered on 09:32; Start 11/26/16 at 09:00 Quetiapine Fumarate (SEROquel) 25 mg QHS PO Last administered on 11/26/16 21: 54; Start 11/26/16 at 21:00 Rivastigmine (Exelon) 1 patch DAILY TD Last administered on 11/27/16 09:17; Start 11/26/16 at 09:00 Sennosides (Senna) 8.6 mg DAILY PO Last administered on 11/27/16 09:18; Start 11/26/16 at 09:00 Sertraline HCl (Zoloft) 50 mg DAILY PO Last administered on 11/27/16 09:19; Start 11/26/16 at 09:00 Non-Formulary Medication 1 each BID PO ; Start 11/26/16 at 09:00; Status UNV Ferrous Sulfate (Feosol) 325 mg BIDWMEALS PO Last administered on 11/27/16 09: 18; Start 11/26/16 at 09:00 Verapamil HCl (Calan Sr) 180 mg BID PO ; Start 11/26/16 at 09:00 Cefazolin Sodium 50 ml @ As Directed STK-MED ONCE IV ; Start 11/26/16 at 09:31; Stop 11/26/16 at 09:32; Status DC Sevoflurane (Ultane) 60 ml STK-MED ONCE IH ; Start 11/26/16 at 09:43; Stop 11/26 at 09:44; Status DC Fentanyl Citrate (Fentanyl 2ml Vial) 100 mcg STK-MED ONCE .ROUTE ; Start at 09:43; Stop 11/26/16 at 09:44; Status DC Propofol 20 ml @ As Directed STK-MED ONCE IV ; Start 11/26/16 at 09:43; Stop at 09:44; Status DC Lidocaine HCl (Lidocaine Pf 2% Vial) 5 ml STK-MED ONCE .ROUTE ; Start 11/26/16 at 09:43; Stop 11/26/16 at 09:44; Status DC Dexamethasone Sodium Phosphate (Decadron) 20 mg STK-MED ONCE .ROUTE ; Start at 09:43; Stop 11/26/16 at 09:44; Status DC Ondansetron HCl (Zofran) 4 mg STK-MED ONCE .ROUTE ; Start 11/26/16 at 09:43; Stop 11/26/16 at 09:44; Status DC Albumin Human 0 ml @ As Directed STK-MED ONCE IV ; Start 11/26/16 at 10:42; Stop 11/26/16 at 10:43; Status DC Cefazolin Sodium 50 ml @ 100 mls/hr 1X PREOP IV ; Start 11/26/16 at 11:45; Stop 11/27/16 at 18:00 Ephedrine Sulfate 50 mg STK-MED ONCE IV ; Start 11/26/16 at 11:58; Stop at 11:59; Status DC Active Scripts Active Reported Naproxen 500 Mg Tablet 1 Tab PO PRN BID PRN Milk Of Magnesia (Magnesium Hydroxide) 400 Mg/5 Ml Oral.susp 400 Mg PO PRN DAILY PRN Loperamide (Loperamide Hcl) 2 Mg Capsule 2 Mg PO PRN BID PRN Acetaminophen 500 Mg Tablet 1 Tab PO Q6HRS Verapamil Er (Verapamil Hcl) 240 Mg Cap24h.pel 180 Mg PO DAILY Trazodone Hcl 50 Mg Tablet 1 Tab PO QHS Zoloft (Sertraline Hcl) 50 Mg Tablet 1 Tab PO DAILY Senexon (Sennosides) 8.6 Mg Tablet 8.6 Mg PO DAILY Rivastigmine 1 Each Patch.td24 1 Each TD DAILY Seroquel (Quetiapine Fumarate) 25 Mg Tablet 1 Tab PO QHS Nuedexta 20-10 Mg Capsule (Dextromethorphan Hbr/Quinidine) 1 Each Capsule 1 Each PO BID Liquitears (Polyvinyl Alcohol) 15 Ml Drops 15 Ml OP TID Hydrocodone-Apap 5-325 (Hydrocodone Bit/Acetaminophen) 1 Each Tablet 1 Tab PO BID Gabapentin 100 Mg Capsule 100 Mg PO TID Ferrous Gluconate 324 Mg Tablet 324 Mg PO TIDWMEALS Famotidine 20 Mg Tablet 20 Mg PO HS Tylenol (Acetaminophen) 325 Mg Tablet 2 Tab PO BID Vitals/I & O Vital Sign - Last 24 Hours 11/26/16 11/26/16 11/26/16 11/26/16 13:12 13:12 13:27 13:40 Temp 98.6 98.6 Pulse 82 84 Resp 14 16 B/P (MAP) 128/59 139/57 Pulse Ox 100 100 O2 Delivery Simple Mask Mask Simple Mask Room Air O2 Flow Rate 10 10 10 11/26/16 11/26/16 11/26/16 11/26/16 13:42 13:57 14:12 14:45 Temp 98.2 97.5 98.2 97.5 Pulse 84 88 95 89 Resp 16 18 16 B/P (MAP) 129/57 130/64 133/61 140/59 (86) Pulse Ox 100 94 92 96 O2 Delivery Simple Mask Room Air Room Air Nasal Cannula O2 Flow Rate 10 2.0 11/26/16 11/26/16 11/26/16 11/26/16 15:00 15:15 15:30 15:45 Temp 97.8 97.8 Pulse 89 87 88 88 B/P (MAP) 126/48 (74) 122/53 (76) 123/55 (77) 133/52 (79) Pulse Ox 99 98 98 98 O2 Delivery Nasal Cannula Nasal Cannula Nasal Cannula Nasal Cannula O2 Flow Rate 2.0 2.0 2.0 2.0 11/26/16 11/26/16 11/26/16 11/26/16 16:15 16:45 17:45 18:45 Temp 98.1 98.1 Pulse 87 89 86 86 B/P (MAP) 115/55 (75) 107/53 (71) 117/60 (79) 115/53 (73) Pulse Ox 99 97 100 96 O2 Delivery Nasal Cannula Nasal Cannula Nasal Cannula Nasal Cannula O2 Flow Rate 2.0 2.0 2.0 2.0 11/26/16 11/26/16 11/26/16 11/26/16 19:45 21:03 21:15 21:54 Temp 98.1 98.8 98.1 98.8 Pulse 92 86 Resp 18 17 B/P (MAP) 110/47 118/66 Pulse Ox 96 O2 Delivery Nasal Cannula Nasal Cannula O2 Flow Rate 2.0 2.0 11/26/16 11/26/16 11/26/16 11/26/16 22:04 23:00 23:00 23:05 Temp 98.6 97.9 98.6 98.6 97.9 98.6 Pulse 90 92 91 Resp 18 18 B/P (MAP) 117/67 137/65 (89) 144/75 Pulse Ox 95 95 O2 Delivery Room Air Nasal Cannula O2 Flow Rate 2.0 11/27/16 11/27/16 11/27/16 11/27/16 00:20 00:20 03:00 07:00 Temp 98.6 98.6 97.7 98.6 98.6 97.7 Pulse 90 90 68 Resp 18 18 18 B/P (MAP) 110/53 110/53 129/63 (85) Pulse Ox 98 O2 Delivery Nasal Cannula Room Air O2 Flow Rate 2.0 2.0 11/27/16 09:18 Resp 20 O2 Delivery Nasal Cannula Intake and Output 11/26/16 11/26/16 11/27/16 14:59 22:59 06:59 Intake Total 1550 ml 800 ml Output Total 450 ml 925 ml 350 ml Balance 1100 ml -925 ml 450 ml BONI AREVALO MD Nov 27, 2016 09:52
[2016-11-27 11:00] VITALS: BP 129/78
[2016-11-27 15:10] VITALS: BP 119/60
[2016-11-27 19:00] VITALS: BP 110/59
[2016-11-27] MEDS: FAMOTIDINE 20 MG TABLET. PO SCH (20:27)
[2016-11-27] MEDS: QUEtiapine 25 MG TABLET. PO SCH (20:28)
[2016-11-27 23:00] VITALS: BP 110/61
[2016-11-28 03:00] VITALS: BP 110/60
[2016-11-28 07:00] VITALS: BP 137/79
--- NOTE | 2016-11-28 08:50 | PDOC2 ---
CONSULT Date of Consult Date of Consult DATE: 11/26/16 TIME: 07:58 Reason for Consult Reason for Consult: Left hip fracture Referring Physician Referring Physician: Dr. Michaels Identification/Chief Complaint Chief Complaint Left hip pain with transfers and motion Problems: Source Source: Caregiver (patient's daughter), Chart review History of Present Illness Reason for Visit: Patient is 76-year-old male that is on hospice care secondary to severe dementia. Patient's family describes that he had a previous right hip fracture underwent total hip arthroplasty but really started to seem to go downhill after anesthesia in terms of his mental status to the point where he is in now [facility] care and now on hospice secondary to the severe dementia. He had sustained a fall a few days before and they noted that he was having severe pain with any motion of the left hip, trying to sit him up for meals or any transfers. He is minimally mobile but again his family was mainly concerned with the visible pain that he is in with any of these minimal activities Past Medical History Cardiovascular: AFIB, HTN CENTRAL NERVOUS SYSTEM: Dementia Past Surgical History Past Surgical History: Total hip replacement Family History Family History: Hypertension Social History No ALCOHOL: none Drugs: None Current Problem List Problem List Problems Medical Problems: (1) Dementia Status: Acute (2) Hip fracture, left Status: Acute (3) Infection of toe Status: Acute (4) Renal insufficiency Status: Acute Current Medications Current Medications Current Medications Diphtheria/ Tetanus/Acell Pertussis (Boostrix) 0.5 ml ONCE ONCE VAX IM Last administered on 11/25/16 22:12; Start 11/25/16 at 22:00; Stop 11/25/16 at 22:01 ; Status DC Ondansetron HCl (Zofran) 4 mg PRN Q8HRS PRN IV NAUSEA/VOMITING; Start 11/25/16 at 22:30; Stop 11/26/16 at 08:41; Status DC Fentanyl Citrate (Fentanyl 2ml Vial) 50 mcg PRN Q2HR PRN IV PAIN Last administered on 11/25/16 23:19; Start 11/25/16 at 22:30; Stop 11/26/16 at 22:29 ; Status DC Sodium Chloride 1,000 ml @ 75 mls/hr [id number] IV Last administered on 22:47; Start 11/25/16 at 22:30; Stop 11/26/16 at 22:29; Status DC Cefazolin Sodium/ Dextrose 50 ml @ 100 mls/hr 1X ONCE IV Last administered on 11/25/16 22:47; Start 11/25/16 at 22:45; Stop 11/25/16 at 23:14; Status DC Fentanyl Citrate (Fentanyl 2ml Vial) 25 mcg PRN Q5MIN PRN IV MILD PAIN Last administered on 11/26/16 14:07; Start 11/26/16 at 08:00; Stop 11/26/16 at 18:00 ; Status DC Fentanyl Citrate (Fentanyl 2ml Vial) 50 mcg PRN Q5MIN PRN IV MODERATE PAIN; Start 11/26/16 at 08:00; Stop 11/26/16 at 18:00; Status DC Morphine Sulfate 1 mg PRN Q10MIN PRN IV SEVERE PAIN; Start 11/26/16 at 08:00; Stop 11/26/16 at 18:00; Status DC Ringer's Solution 1,000 ml @ 30 mls/hr Q24H IV ; Start 11/26/16 at 07:57; Stop 11/26/16 at 19:56; Status DC Lidocaine HCl 2 ml PRN 1X PRN ID PRIOR TO IV START; Start 11/26/16 at 08:00; Stop 11/26/16 at 18:00; Status DC Hydromorphone HCl (Dilaudid) 0.5 mg PRN Q10MIN PRN IV SEV PAIN, Second choice; Start 11/26/16 at 08:00; Stop 11/26/16 at 18:00; Status DC Prochlorperazine Edisylate (Compazine) 5 mg PACU PRN PRN IV NAUSEA, MRX1; Start 11/26/16 at 08:00; Stop 11/26/16 at 18:00; Status DC Ondansetron HCl (Zofran) 4 mg PRN Q6HRS PRN IV NAUSEA/VOMITING; Start 11/26/16 at 08:38; Stop 11/27/16 at 08:37; Status DC Acetaminophen (Tylenol) 500 mg PRN Q6HRS PRN PO MILD PAIN / TEMP; Start at 08:45 Famotidine (Pepcid) 20 mg HS PO Last administered on 11/27/16 20:27; Start at 21:00 Gabapentin (Neurontin) 100 mg TID PO Last administered on 11/27/16 20:28; Start 11/26/16 at 09:00 Acetaminophen/ Hydrocodone Bitart (Lortab 5/325) 1 tab BID PO Last administered on 11/27/16 20:28; Start 11/26/16 at 09:00 Loperamide HCl (Imodium) 2 mg PRN BID PRN PO DIARRHEA; Start 11/26/16 at 08:45 Magnesium Hydroxide (Milk Of Magnesia) 400 mg PRN DAILY PRN PO CONSTIPATION; Start 11/26/16 at 08:45 Naproxen (Naprosyn) 500 mg PRN BID PRN PO HEADACHE; Start 11/26/16 at 08:45 Artificial Tears (Artificial Tears) 1 drop TID OU Last administered on 20:28; Start 11/26/16 at 09:00 Quetiapine Fumarate (SEROquel) 25 mg QHS PO Last administered on 11/27/16 20: 28; Start 11/26/16 at 21:00 Rivastigmine (Exelon) 1 patch DAILY TD Last administered on 11/27/16 09:17; Start 11/26/16 at 09:00 Sennosides (Senna) 8.6 mg DAILY PO Last administered on 11/27/16 09:18; Start 11/26/16 at 09:00 Sertraline HCl (Zoloft) 50 mg DAILY PO Last administered on 11/27/16 09:19; Start 11/26/16 at 09:00 Non-Formulary Medication 1 each BID PO ; Start 11/26/16 at 09:00; Stop 11/27/16 at 13:58; Status DC Ferrous Sulfate (Feosol) 325 mg BIDWMEALS PO Last administered on 11/27/16 17: 12; Start 11/26/16 at 09:00 Verapamil HCl (Calan Sr) 180 mg BID PO ; Start 11/26/16 at 09:00 Cefazolin Sodium 50 ml @ As Directed STK-MED ONCE IV ; Start 11/26/16 at 09:31; Stop 11/26/16 at 09:32; Status DC Sevoflurane (Ultane) 60 ml STK-MED ONCE IH ; Start 11/26/16 at 09:43; Stop 11/26 at 09:44; Status DC Fentanyl Citrate (Fentanyl 2ml Vial) 100 mcg STK-MED ONCE .ROUTE ; Start at 09:43; Stop 11/26/16 at 09:44; Status DC Propofol 20 ml @ As Directed STK-MED ONCE IV ; Start 11/26/16 at 09:43; Stop at 09:44; Status DC Lidocaine HCl (Lidocaine Pf 2% Vial) 5 ml STK-MED ONCE .ROUTE ; Start 11/26/16 at 09:43; Stop 11/26/16 at 09:44; Status DC Dexamethasone Sodium Phosphate (Decadron) 20 mg STK-MED ONCE .ROUTE ; Start at 09:43; Stop 11/26/16 at 09:44; Status DC Ondansetron HCl (Zofran) 4 mg STK-MED ONCE .ROUTE ; Start 11/26/16 at 09:43; Stop 11/26/16 at 09:44; Status DC Albumin Human 0 ml @ As Directed STK-MED ONCE IV ; Start 11/26/16 at 10:42; Stop 11/26/16 at 10:43; Status DC Cefazolin Sodium 50 ml @ 100 mls/hr 1X PREOP IV ; Start 11/26/16 at 11:45; Stop 11/27/16 at 18:00; Status DC Ephedrine Sulfate 50 mg STK-MED ONCE IV ; Start 11/26/16 at 11:58; Stop at 11:59; Status DC Cefazolin Sodium (Ancef 1gm Ivpb For Omni) 1 gm STK-MED ONCE IV ; Start at 09:30; Stop 11/28/16 at 08:05; Status DC Active Scripts Active Reported Naproxen 500 Mg Tablet 1 Tab PO PRN BID PRN Milk Of Magnesia (Magnesium Hydroxide) 400 Mg/5 Ml Oral.susp 400 Mg PO PRN DAILY PRN Loperamide (Loperamide Hcl) 2 Mg Capsule 2 Mg PO PRN BID PRN Acetaminophen 500 Mg Tablet 1 Tab PO Q6HRS Verapamil Er (Verapamil Hcl) 240 Mg Cap24h.pel 180 Mg PO DAILY Trazodone Hcl 50 Mg Tablet 1 Tab PO QHS Zoloft (Sertraline Hcl) 50 Mg Tablet 1 Tab PO DAILY Senexon (Sennosides) 8.6 Mg Tablet 8.6 Mg PO DAILY Rivastigmine 1 Each Patch.td24 1 Each TD DAILY Seroquel (Quetiapine Fumarate) 25 Mg Tablet 1 Tab PO QHS Nuedexta 20-10 Mg Capsule (Dextromethorphan Hbr/Quinidine) 1 Each Capsule 1 Each PO BID Liquitears (Polyvinyl Alcohol) 15 Ml Drops 15 Ml OP TID Hydrocodone-Apap 5-325 (Hydrocodone Bit/Acetaminophen) 1 Each Tablet 1 Tab PO BID Gabapentin 100 Mg Capsule 100 Mg PO TID Ferrous Gluconate 324 Mg Tablet 324 Mg PO TIDWMEALS Famotidine 20 Mg Tablet 20 Mg PO HS Tylenol (Acetaminophen) 325 Mg Tablet 2 Tab PO BID Allergies Allergies: Coded Allergies: No Known Drug Allergies (Unverified , 11/25/16) Physical Exam Physical Exam On physical examination he is quite sedated currently not alert at or oriented to place or time. He is moving his upper extremities spontaneously but cries out in pain with any motion of his left hip and leg is shortened and internally rotated he has normal alignment stability of bilateral knees and ankles and has a well-healed incision from total hip arthroplasty on the right which has good stability. Likewise is moving his toes and feet spontaneously and has a heel ulcer on the left foot and both feet have dressings on his toes Vitals VITALS Vital Signs Date Time Temp Pulse Resp B/P (MAP) Pulse Ox O2 Delivery O2 Flow Rate FiO2 11/28/16 07:00 97.6 91 18 137/79 (98) 98 Room Air 97.6 11/28/16 03:00 2.0 Labs Labs Laboratory Tests Test 11/26/16 13:45 11/27/16 07:30 White Blood Count 7.6 x10^3/uL (4.0-11.0) 5.6 x10^3/uL (4.0-11.0) Red Blood Count 2.62 x10^6/uL (4.30-5.70) 2.49 x10^6/uL (4.30-5.70) Hemoglobin 8.4 g/dL (13.0-17.5) 8.0 g/dL (13.0-17.5) Hematocrit 25.0 % (39.0-53.0) 23.2 % (39.0-53.0) Mean Corpuscular Volume 96 fL (79-100) 93 fL (79-100) Mean Corpuscular Hemoglobin 32 pg (25-35) 32 pg (25-35) Mean Corpuscular Hemoglobin Concent 34 g/dL (31-37) 34 g/dL (31-37) Red Cell Distribution Width 14.3 % (11.5-14.5) 14.8 % (11.5-14.5) Platelet Count 145 x10^3/uL (140-400) 146 x10^3/uL (140-400) Neutrophils (%) (Auto) 64 % (31-73) Lymphocytes (%) (Auto) 20 % (24-48) Monocytes (%) (Auto) 15 % (0-9) Eosinophils (%) (Auto) 1 % (0-3) Basophils (%) (Auto) 0 % (0-3) Neutrophils # (Auto) 3.6 x10^3uL (1.8-7.7) Lymphocytes # (Auto) 1.1 x10^3/uL (1.0-4.8) Monocytes # (Auto) 0.9 x10^3/uL (0.0-1.1) Eosinophils # (Auto) 0.0 x10^3/uL (0.0-0.7) Basophils # (Auto) 0.0 x10^3/uL (0.0-0.2) Erythrocyte Sedimentation Rate 32 (0-15) Sodium Level 140 mmol/L (136-145) Potassium Level 4.6 mmol/L (3.5-5.1) Chloride Level 105 mmol/L (98-107) Carbon Dioxide Level 30 mmol/L (21-32) Anion Gap 5 (6-14) Blood Urea Nitrogen 33 mg/dL (8-26) Creatinine 0.9 mg/dL (0.7-1.3) Estimated GFR (Cockcroft-Gault) 81.8 Glucose Level 111 mg/dL (70-99) Calcium Level 8.5 mg/dL (8.5-10.1) Images Images X-rays left hip show a displaced intertrochanteric left hip fracture and pelvis x-ray shows a well-placed total hip arthroplasty on the right Assessment/Plan Assessment/Plan I went over with the patient's family the injury to his left hip and the treatment options including the possibility of essentially bed rest and traction which could result in satisfactory healing but would really not allow him much in the way of movement in terms of sitting up or transfers as he would be in traction to maintain alignment and would have pressure areas and immobility related complications as a possibility. We talked about the possibility of operative evaluation and treatment for stabilizing the fracture allowing him some limited movement with the goal of pain relief. We also discussed the operative risks of infection potential of nonhealing negative for blood vessel damage medical or other anesthetic complications among others. Family is particularly concerned that he would really not tolerate the traction is having significant pain with current activities and are looking for a solution to stabilize the fracture to help his current pain level. All her questions were answered and informed consent was obtained to proceed with surgical evaluation and treatment which will occur today BART ROCHA MD Nov 28, 2016 08:50
[2016-11-28] MEDS: FERROUS SULFATE 325 MG TABLET. PO SCH ×2 (08:56→15:22)
[2016-11-28] MEDS: SERTRALINE 50 MG TABLET. PO SCH (08:56)
[2016-11-28] MEDS: HYDROcodone/APAP 5/325MG 1 TAB TABLET PO SCH ×2 (08:56→22:02)
[2016-11-28] MEDS: VERAPAMIL SR 180 MG TABLET.ER. PO SCH ×2 (08:56→22:02)
[2016-11-28] MEDS: GABAPENTIN 100 MG CAPSULE. PO SCH ×3 (08:56→22:02)
[2016-11-28] MEDS: SENNOSIDES 8.6 MG TABLET PO SCH (08:56)
[2016-11-28] MEDS: RIVASTIGMINE 9.5MG PATCH. TD SCH (08:57)
[2016-11-28] MEDS: POLYVINYL ALCOHOL 1.4% OPHTH SOLUTION 15ML BOTTLE. OU SCH ×3 (08:57→22:01)
[2016-11-28 11:00] VITALS: BP 120/63
--- NOTE | 2016-11-28 11:18 | PDOC3 ---
Discharge Summary Visit Information Date of Discharge: Nov 28, 2016 Admitting Diagnosis Comment: Hip fx Final Diagnosis Problems Medical Problems: (1) Dementia Status: Acute (2) Hip fracture, left Status: Acute (3) Infection of toe Status: Acute (4) Renal insufficiency Status: Acute Brief Hospital Course Allergies Allergies Coded Allergies Type Severity Reaction Last Updated Verified No Known Drug Allergies 11/25/16 No Vital Signs Vital Signs Date Time Temp Pulse Resp B/P (MAP) Pulse Ox O2 Delivery O2 Flow Rate FiO2 11/28/16 10:56 Nasal Cannula 2.0 11/28/16 08:56 91 137/79 11/28/16 07:00 97.6 18 98 97.6 Lab Results Laboratory Tests Test 11/26/16 13:45 11/27/16 07:30 White Blood Count 7.6 x10^3/uL (4.0-11.0) 5.6 x10^3/uL (4.0-11.0) Red Blood Count 2.62 x10^6/uL (4.30-5.70) 2.49 x10^6/uL (4.30-5.70) Hemoglobin 8.4 g/dL (13.0-17.5) 8.0 g/dL (13.0-17.5) Hematocrit 25.0 % (39.0-53.0) 23.2 % (39.0-53.0) Mean Corpuscular Volume 96 fL (79-100) 93 fL (79-100) Mean Corpuscular Hemoglobin 32 pg (25-35) 32 pg (25-35) Mean Corpuscular Hemoglobin Concent 34 g/dL (31-37) 34 g/dL (31-37) Red Cell Distribution Width 14.3 % (11.5-14.5) 14.8 % (11.5-14.5) Platelet Count 145 x10^3/uL (140-400) 146 x10^3/uL (140-400) Neutrophils (%) (Auto) 64 % (31-73) Lymphocytes (%) (Auto) 20 % (24-48) Monocytes (%) (Auto) 15 % (0-9) Eosinophils (%) (Auto) 1 % (0-3) Basophils (%) (Auto) 0 % (0-3) Neutrophils # (Auto) 3.6 x10^3uL (1.8-7.7) Lymphocytes # (Auto) 1.1 x10^3/uL (1.0-4.8) Monocytes # (Auto) 0.9 x10^3/uL (0.0-1.1) Eosinophils # (Auto) 0.0 x10^3/uL (0.0-0.7) Basophils # (Auto) 0.0 x10^3/uL (0.0-0.2) Erythrocyte Sedimentation Rate 32 (0-15) Sodium Level 140 mmol/L (136-145) Potassium Level 4.6 mmol/L (3.5-5.1) Chloride Level 105 mmol/L (98-107) Carbon Dioxide Level 30 mmol/L (21-32) Anion Gap 5 (6-14) Blood Urea Nitrogen 33 mg/dL (8-26) Creatinine 0.9 mg/dL (0.7-1.3) Estimated GFR (Cockcroft-Gault) 81.8 Glucose Level 111 mg/dL (70-99) Calcium Level 8.5 mg/dL (8.5-10.1) Brief Hospital Course Mr. Kasper is a 76 old [sex] who presented with [ ]a fall with Hip fracture. He also has severe dementia Admitted Taken for ORIF Today beach was seen and examined At baseline Plan is dc with Hospice at [facility] Total time 32 minutes Discharge Information Scheduled Acetaminophen (Tylenol), 2 TAB PO BID, (Reported) Acetaminophen (Acetaminophen), 1 TAB PO Q6HRS, (Reported) Dextromethorphan Hbr/Quinidine (Nuedexta 20-10 Mg Capsule), 1 EACH PO BID, ( Reported) Famotidine (Famotidine), 20 MG PO HS, (Reported) Ferrous Gluconate (Ferrous Gluconate), 324 MG PO TIDWMEALS, (Reported) Gabapentin (Gabapentin), 100 MG PO TID, (Reported) Hydrocodone Bit/Acetaminophen (Hydrocodone-Apap 5-325 ), 1 TAB PO BID, ( Reported) Polyvinyl Alcohol (Liquitears), 15 ML OP TID, (Reported) Quetiapine Fumarate (Seroquel), 1 TAB PO QHS, (Reported) Rivastigmine (Rivastigmine), 1 EACH TD DAILY, (Reported) Sennosides (Senexon), 8.6 MG PO DAILY, (Reported) Sertraline Hcl (Zoloft), 1 TAB PO DAILY, (Reported) Trazodone Hcl (Trazodone Hcl), 1 TAB PO QHS, (Reported) Verapamil Hcl (Verapamil Er), 180 MG PO DAILY, (Reported) Scheduled PRN Loperamide Hcl (Loperamide), 2 MG PO PRN BID PRN for DIARRHEA, (Reported) Magnesium Hydroxide (Milk Of Magnesia), 400 MG PO PRN DAILY PRN for CONSTIPATION , (Reported) Naproxen (Naproxen), 1 TAB PO PRN BID PRN for HEADACHE, (Reported) VIKI TUBBS III DO Nov 28, 2016 11:18
--- NOTE | 2016-11-28 11:25 | PDOC ---
PROGRESS NOTES Chief Complaint Chief Complaint 1. Left hip fx, traumatic, mechanical after fall in SNU 2. Severe LEwy body dementia 3. GEn weaknes, FTT, acute pain sec to above 4. DNR/DNI on hospice 5. Pressure sores/hell,. foot 6. Acute blood loss anemia, post op History of Present Illness History of Present Illness Patient doing well this AM; able to discuss plan with patient. Denies any acute complaints Vitals Vitals Vital Signs Date Time Temp Pulse Resp B/P (MAP) Pulse Ox O2 Delivery O2 Flow Rate FiO2 11/28/16 11:00 97.5 87 18 120/63 (82) 97 Nasal Cannula 2.0 97.5 Physical Exam General: mild distress, Other (from pain, mouth breather) Heart: Regular rate Lungs: Clear Abdomen: Normal bowel sounds, Soft, No tenderness, No hepatosplenomegaly, No masses Extremities: Other (left hip externally rotated) Skin: No rashes, No breakdown, No significant lesion Review of Systems Review of Systems Patient is resting comfortably on the bed, answered questions appropriately, denies SOB, chest pain Assessment and Plan Assessmemt and Plan Assessment: 1. Left hip fx, traumatic, mechanical after fall in SNU 2. Severe Lewy body dementia 3. Gen weaknes, FTT, acute pain sec to above 4. DNR/DNI on hospice 5. Pressure sores/hell,. foot 6. Acute blood loss anemia, post op Plan: 1. Swab wounds - watch cultures (wound - FINAL no growth; blood culture - no growth after 2 days) 2. Cont wound care 3. Cont the special boots to keep foot off 4. Discussed plan with RN and the patient 5. Back to [facility] when discharged Problems: Comment Review of Relevant I have reviewed the following items temo (where applicable) has been applied. Labs Laboratory Tests Test 11/26/16 13:45 11/27/16 07:30 White Blood Count 7.6 x10^3/uL (4.0-11.0) 5.6 x10^3/uL (4.0-11.0) Red Blood Count 2.62 x10^6/uL (4.30-5.70) 2.49 x10^6/uL (4.30-5.70) Hemoglobin 8.4 g/dL (13.0-17.5) 8.0 g/dL (13.0-17.5) Hematocrit 25.0 % (39.0-53.0) 23.2 % (39.0-53.0) Mean Corpuscular Volume 96 fL (79-100) 93 fL (79-100) Mean Corpuscular Hemoglobin 32 pg (25-35) 32 pg (25-35) Mean Corpuscular Hemoglobin Concent 34 g/dL (31-37) 34 g/dL (31-37) Red Cell Distribution Width 14.3 % (11.5-14.5) 14.8 % (11.5-14.5) Platelet Count 145 x10^3/uL (140-400) 146 x10^3/uL (140-400) Neutrophils (%) (Auto) 64 % (31-73) Lymphocytes (%) (Auto) 20 % (24-48) Monocytes (%) (Auto) 15 % (0-9) Eosinophils (%) (Auto) 1 % (0-3) Basophils (%) (Auto) 0 % (0-3) Neutrophils # (Auto) 3.6 x10^3uL (1.8-7.7) Lymphocytes # (Auto) 1.1 x10^3/uL (1.0-4.8) Monocytes # (Auto) 0.9 x10^3/uL (0.0-1.1) Eosinophils # (Auto) 0.0 x10^3/uL (0.0-0.7) Basophils # (Auto) 0.0 x10^3/uL (0.0-0.2) Erythrocyte Sedimentation Rate 32 (0-15) Sodium Level 140 mmol/L (136-145) Potassium Level 4.6 mmol/L (3.5-5.1) Chloride Level 105 mmol/L (98-107) Carbon Dioxide Level 30 mmol/L (21-32) Anion Gap 5 (6-14) Blood Urea Nitrogen 33 mg/dL (8-26) Creatinine 0.9 mg/dL (0.7-1.3) Estimated GFR (Cockcroft-Gault) 81.8 Glucose Level 111 mg/dL (70-99) Calcium Level 8.5 mg/dL (8.5-10.1) Microbiology 11/25/16 Blood Culture - Preliminary, Resulted NO GROWTH AFTER 2 DAYS 11/27/16 Gram Stain - Final, Complete Medications Current Medications Diphtheria/ Tetanus/Acell Pertussis (Boostrix) 0.5 ml ONCE ONCE VAX IM Last administered on 11/25/16 22:12; Start 11/25/16 at 22:00; Stop 11/25/16 at 22:01 ; Status DC Ondansetron HCl (Zofran) 4 mg PRN Q8HRS PRN IV NAUSEA/VOMITING; Start 11/25/16 at 22:30; Stop 11/26/16 at 08:41; Status DC Fentanyl Citrate (Fentanyl 2ml Vial) 50 mcg PRN Q2HR PRN IV PAIN Last administered on 11/25/16 23:19; Start 11/25/16 at 22:30; Stop 11/26/16 at 22:29 ; Status DC Sodium Chloride 1,000 ml @ 75 mls/hr [id number] IV Last administered on 22:47; Start 11/25/16 at 22:30; Stop 11/26/16 at 22:29; Status DC Cefazolin Sodium/ Dextrose 50 ml @ 100 mls/hr 1X ONCE IV Last administered on 11/25/16 22:47; Start 11/25/16 at 22:45; Stop 11/25/16 at 23:14; Status DC Fentanyl Citrate (Fentanyl 2ml Vial) 25 mcg PRN Q5MIN PRN IV MILD PAIN Last administered on 11/26/16 14:07; Start 11/26/16 at 08:00; Stop 11/26/16 at 18:00 ; Status DC Fentanyl Citrate (Fentanyl 2ml Vial) 50 mcg PRN Q5MIN PRN IV MODERATE PAIN; Start 11/26/16 at 08:00; Stop 11/26/16 at 18:00; Status DC Morphine Sulfate 1 mg PRN Q10MIN PRN IV SEVERE PAIN; Start 11/26/16 at 08:00; Stop 11/26/16 at 18:00; Status DC Ringer's Solution 1,000 ml @ 30 mls/hr Q24H IV ; Start 11/26/16 at 07:57; Stop 11/26/16 at 19:56; Status DC Lidocaine HCl 2 ml PRN 1X PRN ID PRIOR TO IV START; Start 11/26/16 at 08:00; Stop 11/26/16 at 18:00; Status DC Hydromorphone HCl (Dilaudid) 0.5 mg PRN Q10MIN PRN IV SEV PAIN, Second choice; Start 11/26/16 at 08:00; Stop 11/26/16 at 18:00; Status DC Prochlorperazine Edisylate (Compazine) 5 mg PACU PRN PRN IV NAUSEA, MRX1; Start 11/26/16 at 08:00; Stop 11/26/16 at 18:00; Status DC Ondansetron HCl (Zofran) 4 mg PRN Q6HRS PRN IV NAUSEA/VOMITING; Start 11/26/16 at 08:38; Stop 11/27/16 at 08:37; Status DC Acetaminophen (Tylenol) 500 mg PRN Q6HRS PRN PO MILD PAIN / TEMP; Start at 08:45 Famotidine (Pepcid) 20 mg HS PO Last administered on 11/27/16 20:27; Start at 21:00 Gabapentin (Neurontin) 100 mg TID PO Last administered on 11/28/16 08:56; Start 11/26/16 at 09:00 Acetaminophen/ Hydrocodone Bitart (Lortab 5/325) 1 tab BID PO Last administered on 11/28/16 08:56; Start 11/26/16 at 09:00 Loperamide HCl (Imodium) 2 mg PRN BID PRN PO DIARRHEA; Start 11/26/16 at 08:45 Magnesium Hydroxide (Milk Of Magnesia) 400 mg PRN DAILY PRN PO CONSTIPATION; Start 11/26/16 at 08:45 Naproxen (Naprosyn) 500 mg PRN BID PRN PO HEADACHE; Start 11/26/16 at 08:45 Artificial Tears (Artificial Tears) 1 drop TID OU Last administered on 08:57; Start 11/26/16 at 09:00 Quetiapine Fumarate (SEROquel) 25 mg QHS PO Last administered on 11/27/16 20: 28; Start 11/26/16 at 21:00 Rivastigmine (Exelon) 1 patch DAILY TD Last administered on 11/28/16 08:57; Start 11/26/16 at 09:00 Sennosides (Senna) 8.6 mg DAILY PO Last administered on 11/28/16 08:56; Start 11/26/16 at 09:00 Sertraline HCl (Zoloft) 50 mg DAILY PO Last administered on 11/28/16 08:56; Start 11/26/16 at 09:00 Non-Formulary Medication 1 each BID PO ; Start 11/26/16 at 09:00; Stop 11/27/16 at 13:58; Status DC Ferrous Sulfate (Feosol) 325 mg BIDWMEALS PO Last administered on 11/28/16 08: 56; Start 11/26/16 at 09:00 Verapamil HCl (Calan Sr) 180 mg BID PO Last administered on 11/28/16 08:56; Start 11/26/16 at 09:00 Cefazolin Sodium 50 ml @ As Directed STK-MED ONCE IV ; Start 11/26/16 at 09:31; Stop 11/26/16 at 09:32; Status DC Sevoflurane (Ultane) 60 ml STK-MED ONCE IH ; Start 11/26/16 at 09:43; Stop 11/26 at 09:44; Status DC Fentanyl Citrate (Fentanyl 2ml Vial) 100 mcg STK-MED ONCE .ROUTE ; Start at 09:43; Stop 11/26/16 at 09:44; Status DC Propofol 20 ml @ As Directed STK-MED ONCE IV ; Start 11/26/16 at 09:43; Stop at 09:44; Status DC Lidocaine HCl (Lidocaine Pf 2% Vial) 5 ml STK-MED ONCE .ROUTE ; Start 11/26/16 at 09:43; Stop 11/26/16 at 09:44; Status DC Dexamethasone Sodium Phosphate (Decadron) 20 mg STK-MED ONCE .ROUTE ; Start at 09:43; Stop 11/26/16 at 09:44; Status DC Ondansetron HCl (Zofran) 4 mg STK-MED ONCE .ROUTE ; Start 11/26/16 at 09:43; Stop 11/26/16 at 09:44; Status DC Albumin Human 0 ml @ As Directed STK-MED ONCE IV ; Start 11/26/16 at 10:42; Stop 11/26/16 at 10:43; Status DC Cefazolin Sodium 50 ml @ 100 mls/hr 1X PREOP IV ; Start 11/26/16 at 11:45; Stop 11/27/16 at 18:00; Status DC Ephedrine Sulfate 50 mg STK-MED ONCE IV ; Start 11/26/16 at 11:58; Stop at 11:59; Status DC Cefazolin Sodium (Ancef 1gm Ivpb For Omni) 1 gm STK-MED ONCE IV ; Start at 09:30; Stop 11/28/16 at 08:05; Status DC Active Scripts Active Reported Naproxen 500 Mg Tablet 1 Tab PO PRN BID PRN Milk Of Magnesia (Magnesium Hydroxide) 400 Mg/5 Ml Oral.susp 400 Mg PO PRN DAILY PRN Loperamide (Loperamide Hcl) 2 Mg Capsule 2 Mg PO PRN BID PRN Acetaminophen 500 Mg Tablet 1 Tab PO Q6HRS Verapamil Er (Verapamil Hcl) 240 Mg Cap24h.pel 180 Mg PO DAILY Trazodone Hcl 50 Mg Tablet 1 Tab PO QHS Zoloft (Sertraline Hcl) 50 Mg Tablet 1 Tab PO DAILY Senexon (Sennosides) 8.6 Mg Tablet 8.6 Mg PO DAILY Rivastigmine 1 Each Patch.td24 1 Each TD DAILY Seroquel (Quetiapine Fumarate) 25 Mg Tablet 1 Tab PO QHS Nuedexta 20-10 Mg Capsule (Dextromethorphan Hbr/Quinidine) 1 Each Capsule 1 Each PO BID Liquitears (Polyvinyl Alcohol) 15 Ml Drops 15 Ml OP TID Hydrocodone-Apap 5-325 (Hydrocodone Bit/Acetaminophen) 1 Each Tablet 1 Tab PO BID Gabapentin 100 Mg Capsule 100 Mg PO TID Ferrous Gluconate 324 Mg Tablet 324 Mg PO TIDWMEALS Famotidine 20 Mg Tablet 20 Mg PO HS Tylenol (Acetaminophen) 325 Mg Tablet 2 Tab PO BID Vitals/I & O Vital Sign - Last 24 Hours 11/27/16 11/27/16 11/27/16 11/27/16 15:10 19:00 19:30 20:28 Temp 98.8 97.9 98.8 97.9 Pulse 111 89 Resp 20 20 B/P (MAP) 119/60 (79) 110/59 (76) Pulse Ox 93 96 96 O2 Delivery Room Air Room Air Nasal Cannula Nasal Cannula O2 Flow Rate 2.0 2.0 2.0 2.0 11/27/16 11/27/16 11/28/16 11/28/16 21:30 23:00 03:00 07:00 Temp 97.9 98.6 97.6 97.9 98.6 97.6 Pulse 90 87 91 Resp 20 20 18 B/P (MAP) 110/61 (77) 110/60 (77) 137/79 (98) Pulse Ox 96 100 95 98 O2 Delivery Room Air Room Air Room Air O2 Flow Rate 2.0 2.0 11/28/16 11/28/16 11/28/16 11/28/16 08:56 08:56 10:56 11:00 Temp 97.5 97.5 Pulse 91 87 Resp 18 B/P (MAP) 137/79 120/63 (82) Pulse Ox 97 O2 Delivery Nasal Cannula Nasal Cannula Nasal Cannula O2 Flow Rate 2.0 2.0 2.0 Intake and Output 11/27/16 11/27/16 11/28/16 15:00 23:00 07:00 Intake Total 958 ml 20 ml Output Total 650 ml 750 ml Balance 958 ml -650 ml -730 ml VIKI TUBBS III DO Nov 28, 2016 11:25
[2016-11-28 15:00] VITALS: BP 99/56
[2016-11-28 19:00] VITALS: BP 132/70
[2016-11-28] MEDS: QUEtiapine 25 MG TABLET. PO SCH (22:01)
[2016-11-28] MEDS: FAMOTIDINE 20 MG TABLET. PO SCH (22:01)
[2016-11-28 23:00] VITALS: BP 117/76
[2016-11-29 03:00] VITALS: BP 153/73
[2016-11-29 06:55] VITALS: BP 117/58
[2016-11-29] MEDS: FERROUS SULFATE 325 MG TABLET. PO SCH (08:12)
[2016-11-29] MEDS: VERAPAMIL SR 180 MG TABLET.ER. PO SCH (08:13)
[2016-11-29] MEDS: GABAPENTIN 100 MG CAPSULE. PO SCH (08:14)
[2016-11-29] MEDS: SERTRALINE 50 MG TABLET. PO SCH (08:14)
[2016-11-29] MEDS: SENNOSIDES 8.6 MG TABLET PO SCH (08:14)
[2016-11-29] MEDS: HYDROcodone/APAP 5/325MG 1 TAB TABLET PO SCH (08:14)
[2016-11-29] MEDS: RIVASTIGMINE 9.5MG PATCH. TD SCH (08:15)
[2016-11-29] MEDS: POLYVINYL ALCOHOL 1.4% OPHTH SOLUTION 15ML BOTTLE. OU SCH (08:15)
[2016-11-29 09:07] VITALS: BP 108/49
[2016-11-29 10:47] VITALS: BP 137/65
--- NOTE | 2016-11-29 11:32 | PDOC ---
PROGRESS NOTES Chief Complaint Chief Complaint 1. Left hip fx, traumatic, mechanical after fall in SNU 2. Severe LEwy body dementia 3. GEn weaknes, FTT, acute pain sec to above 4. DNR/DNI on hospice 5. Pressure sores/hell,. foot 6. Acute blood loss anemia, post op History of Present Illness History of Present Illness Patient continuing to do well this AM and he denies any acute complaints. Likely discharged later today to [facility] Vitals Vitals Vital Signs Date Time Temp Pulse Resp B/P (MAP) Pulse Ox O2 Delivery O2 Flow Rate FiO2 11/29/16 10:47 97.5 70 16 137/65 (89) 100 Nasal Cannula 2.0 97.5 Physical Exam General: mild distress, Other (from pain, mouth breather) Heart: Regular rate Lungs: Clear Abdomen: Normal bowel sounds, Soft, No tenderness, No hepatosplenomegaly, No masses Extremities: Other (left hip externally rotated) Skin: No rashes, No breakdown, No significant lesion Review of Systems Review of Systems Patient denies SOB, N/V, chest pain. Assessment and Plan Assessmemt and Plan Assessment: 1. Left hip fx, traumatic, mechanical after fall in SNU 2. Severe Lewy body dementia 3. Gen weaknes, FTT, acute pain sec to above 4. DNR/DNI on hospice 5. Pressure sores/hell,. foot 6. Acute blood loss anemia, post op Plan: 1. Swabbed wounds - watching cultures 2. Cont wound care 3. Cont the special boots to keep foot off 4. Discussed plan with RN and the patient 5. Back to [facility] when discharged likely today Problems: Comment Review of Relevant I have reviewed the following items temo (where applicable) has been applied. Labs Microbiology 11/25/16 Blood Culture - Preliminary, Resulted NO GROWTH AFTER 3 DAYS 11/27/16 Gram Stain - Final, Complete Medications Current Medications Diphtheria/ Tetanus/Acell Pertussis (Boostrix) 0.5 ml ONCE ONCE VAX IM Last administered on 11/25/16t 22:12; Start 11/25/16 at 22:00; Stop 11/25/16 at 22:01 ; Status DC Ondansetron HCl (Zofran) 4 mg PRN Q8HRS PRN IV NAUSEA/VOMITING; Start 11/25/16 at 22:30; Stop 11/26/16 at 08:41; Status DC Fentanyl Citrate (Fentanyl 2ml Vial) 50 mcg PRN Q2HR PRN IV PAIN Last administered on 11/25/16 23:19; Start 11/25/16 at 22:30; Stop 11/26/16 at 22:29 ; Status DC Sodium Chloride 1,000 ml @ 75 mls/hr [id number] IV Last administered on 22:47; Start 11/25/16 at 22:30; Stop 11/26/16 at 22:29; Status DC Cefazolin Sodium/ Dextrose 50 ml @ 100 mls/hr 1X ONCE IV Last administered on 11/25/16 22:47; Start 11/25/16 at 22:45; Stop 11/25/16 at 23:14; Status DC Fentanyl Citrate (Fentanyl 2ml Vial) 25 mcg PRN Q5MIN PRN IV MILD PAIN Last administered on 11/26/16 14:07; Start 11/26/16 at 08:00; Stop 11/26/16 at 18:00 ; Status DC Fentanyl Citrate (Fentanyl 2ml Vial) 50 mcg PRN Q5MIN PRN IV MODERATE PAIN; Start 11/26/16 at 08:00; Stop 11/26/16 at 18:00; Status DC Morphine Sulfate 1 mg PRN Q10MIN PRN IV SEVERE PAIN; Start 11/26/16 at 08:00; Stop 11/26/16 at 18:00; Status DC Ringer's Solution 1,000 ml @ 30 mls/hr Q24H IV ; Start 11/26/16 at 07:57; Stop 11/26/16 at 19:56; Status DC Lidocaine HCl 2 ml PRN 1X PRN ID PRIOR TO IV START; Start 11/26/16 at 08:00; Stop 11/26/16 at 18:00; Status DC Hydromorphone HCl (Dilaudid) 0.5 mg PRN Q10MIN PRN IV SEV PAIN, Second choice; Start 11/26/16 at 08:00; Stop 11/26/16 at 18:00; Status DC Prochlorperazine Edisylate (Compazine) 5 mg PACU PRN PRN IV NAUSEA, MRX1; Start 11/26/16 at 08:00; Stop 11/26/16 at 18:00; Status DC Ondansetron HCl (Zofran) 4 mg PRN Q6HRS PRN IV NAUSEA/VOMITING; Start 11/26/16 at 08:38; Stop 11/27/16 at 08:37; Status DC Acetaminophen (Tylenol) 500 mg PRN Q6HRS PRN PO MILD PAIN / TEMP; Start at 08:45 Famotidine (Pepcid) 20 mg HS PO Last administered on 11/28/16 22:01; Start at 21:00 Gabapentin (Neurontin) 100 mg TID PO Last administered on 11/29/16 08:14; Start 11/26/16 at 09:00 Acetaminophen/ Hydrocodone Bitart (Lortab 5/325) 1 tab BID PO Last administered on 11/29/16 08:14; Start 11/26/16 at 09:00 Loperamide HCl (Imodium) 2 mg PRN BID PRN PO DIARRHEA; Start 11/26/16 at 08:45 Magnesium Hydroxide (Milk Of Magnesia) 400 mg PRN DAILY PRN PO CONSTIPATION; Start 11/26/16 at 08:45 Naproxen (Naprosyn) 500 mg PRN BID PRN PO HEADACHE; Start 11/26/16 at 08:45 Artificial Tears (Artificial Tears) 1 drop TID OU Last administered on 08:15; Start 11/26/16 at 09:00 Quetiapine Fumarate (SEROquel) 25 mg QHS PO Last administered on 11/28/16 22: 01; Start 11/26/16 at 21:00 Rivastigmine (Exelon) 1 patch DAILY TD Last administered on 11/29/16 08:15; Start 11/26/16 at 09:00 Sennosides (Senna) 8.6 mg DAILY PO Last administered on 11/29/16 08:14; Start 11/26/16 at 09:00 Sertraline HCl (Zoloft) 50 mg DAILY PO Last administered on 11/29/16 08:14; Start 11/26/16 at 09:00 Non-Formulary Medication 1 each BID PO ; Start 11/26/16 at 09:00; Stop 11/27/16 at 13:58; Status DC Ferrous Sulfate (Feosol) 325 mg BIDWMEALS PO Last administered on 11/29/16 08: 12; Start 11/26/16 at 09:00 Verapamil HCl (Calan Sr) 180 mg BID PO Last administered on 11/29/16t 08:13; Start 11/26/16 at 09:00 Cefazolin Sodium 50 ml @ As Directed STK-MED ONCE IV ; Start 11/26/16 at 09:31; Stop 11/26/16 at 09:32; Status DC Sevoflurane (Ultane) 60 ml STK-MED ONCE IH ; Start 11/26/16 at 09:43; Stop 11/26 at 09:44; Status DC Fentanyl Citrate (Fentanyl 2ml Vial) 100 mcg STK-MED ONCE .ROUTE ; Start at 09:43; Stop 11/26/16 at 09:44; Status DC Propofol 20 ml @ As Directed STK-MED ONCE IV ; Start 11/26/16 at 09:43; Stop at 09:44; Status DC Lidocaine HCl (Lidocaine Pf 2% Vial) 5 ml STK-MED ONCE .ROUTE ; Start 11/26/16 at 09:43; Stop 11/26/16 at 09:44; Status DC Dexamethasone Sodium Phosphate (Decadron) 20 mg STK-MED ONCE .ROUTE ; Start at 09:43; Stop 11/26/16 at 09:44; Status DC Ondansetron HCl (Zofran) 4 mg STK-MED ONCE .ROUTE ; Start 11/26/16 at 09:43; Stop 11/26/16 at 09:44; Status DC Albumin Human 0 ml @ As Directed STK-MED ONCE IV ; Start 11/26/16 at 10:42; Stop 11/26/16 at 10:43; Status DC Cefazolin Sodium 50 ml @ 100 mls/hr 1X PREOP IV ; Start 11/26/16 at 11:45; Stop 11/27/16 at 18:00; Status DC Ephedrine Sulfate 50 mg STK-MED ONCE IV ; Start 11/26/16 at 11:58; Stop at 11:59; Status DC Cefazolin Sodium (Ancef 1gm Ivpb For Omni) 1 gm STK-MED ONCE IV ; Start at 09:30; Stop 11/28/16 at 08:05; Status DC Lorazepam (Ativan) 1 mg 1X ONCE IV Last administered on 11/29/16t 08:41; Start 11/29/16 at 08:45; Stop 11/29/16 at 08:46; Status DC Active Scripts Active Reported Naproxen 500 Mg Tablet 1 Tab PO PRN BID PRN Milk Of Magnesia (Magnesium Hydroxide) 400 Mg/5 Ml Oral.susp 400 Mg PO PRN DAILY PRN Loperamide (Loperamide Hcl) 2 Mg Capsule 2 Mg PO PRN BID PRN Acetaminophen 500 Mg Tablet 1 Tab PO Q6HRS Verapamil Er (Verapamil Hcl) 240 Mg Cap24h.pel 180 Mg PO DAILY Trazodone Hcl 50 Mg Tablet 1 Tab PO QHS Zoloft (Sertraline Hcl) 50 Mg Tablet 1 Tab PO DAILY Senexon (Sennosides) 8.6 Mg Tablet 8.6 Mg PO DAILY Rivastigmine 1 Each Patch.td24 1 Each TD DAILY Seroquel (Quetiapine Fumarate) 25 Mg Tablet 1 Tab PO QHS Nuedexta 20-10 Mg Capsule (Dextromethorphan Hbr/Quinidine) 1 Each Capsule 1 Each PO BID Liquitears (Polyvinyl Alcohol) 15 Ml Drops 15 Ml OP TID Hydrocodone-Apap 5-325 (Hydrocodone Bit/Acetaminophen) 1 Each Tablet 1 Tab PO BID Gabapentin 100 Mg Capsule 100 Mg PO TID Ferrous Gluconate 324 Mg Tablet 324 Mg PO TIDWMEALS Famotidine 20 Mg Tablet 20 Mg PO HS Tylenol (Acetaminophen) 325 Mg Tablet 2 Tab PO BID Vitals/I & O Vital Sign - Last 24 Hours 11/28/16 11/28/16 11/28/16 11/28/16 15:00 19:00 20:00 22:02 Temp 97.7 98.6 97.7 98.6 Pulse 84 89 Resp 18 18 B/P (MAP) 99/56 (70) 132/70 (90) Pulse Ox 99 96 O2 Delivery Nasal Cannula Nasal Cannula Nasal Cannula Room Air O2 Flow Rate 2.0 2.0 2.0 11/28/16 11/28/16 11/29/16 11/29/16 22:02 23:00 03:00 06:55 Temp 97.7 97.7 97.5 97.7 97.7 97.5 Pulse 89 100 74 67 Resp 18 18 16 B/P (MAP) 132/70 117/76 (90) 153/73 (99) 117/58 (77) Pulse Ox 96 96 99 O2 Delivery Nasal Cannula Nasal Cannula Nasal Cannula O2 Flow Rate 2.0 2.0 2.0 11/29/16 11/29/16 11/29/16 11/29/16 08:00 08:13 08:14 09:07 Pulse 67 80 Resp 16 B/P (MAP) 117/58 108/49 (68) Pulse Ox 99 93 O2 Delivery Nasal Cannula Nasal Cannula Room Air O2 Flow Rate 2.0 2.0 11/29/16 10:47 Temp 97.5 97.5 Pulse 70 Resp 16 B/P (MAP) 137/65 (89) Pulse Ox 100 O2 Delivery Nasal Cannula O2 Flow Rate 2.0 Intake and Output 11/28/16 11/28/16 11/29/16 15:00 23:00 07:00 Intake Total 360 ml 250 ml Output Total 800 ml 300 ml Balance 360 ml -800 ml -50 ml VIKI TUBBS III DO Nov 29, 2016 11:32
== END 2016-11-29 13:50 | disposition hospice, home (50) | DRG 481 ==
LOC: ER 21:33 → 4 NORTH 22:00
PROVIDERS: ADMIT Internal Medicine; ATTEND Internal Medicine
PROC: 30233N1 Transfusion of Nonautologous Red Blood Cells into Peripheral Vein, Percutaneous Approach (ICD-10-PCS; 2016-11-26)
PROC: 0QS706Z Reposition Left Upper Femur with Intramedullary Internal Fixation Device, Open Approach (ICD-10-PCS; 2016-11-26)
PROC: 0QS706Z Reposition Left Upper Femur with Intramedullary Internal Fixation Device, Open Approach (ICD-10-PCS; principal; 2016-11-26 12:00)
DX: S72.142A Displaced intertrochanteric fracture of left femur, initial encounter for closed fracture (principal); D62 Acute posthemorrhagic anemia; G31.83 Neurocognitive disorder with Lewy bodies; I48.91 Unspecified atrial fibrillation; L08.9 Local infection of the skin and subcutaneous tissue, unspecified; N18.2 Chronic kidney disease, stage 2 (mild); R62.7 Adult failure to thrive; L89.899 Pressure ulcer of other site, unspecified stage; N28.9 Disorder of kidney and ureter, unspecified; Z51.5 Encounter for palliative care; Z66 Do not resuscitate; Z96.641 Presence of right artificial hip joint; F02.80 Dementia in other diseases classified elsewhere, unspecified severity, without behavioral disturbance, psychotic disturbance, mood disturbance, and anxiety; I10 Essential (primary) hypertension; W19.XXXA Unspecified fall, initial encounter; Z82.49 Family history of ischemic heart disease and other diseases of the circulatory system; Z87.81 Personal history of (healed) traumatic fracture; Y93.89 Activity, other specified; Y92.89 Other specified places as the place of occurrence of the external cause; Y99.8 Other external cause status; Z79.899 Other long term (current) drug therapy; Z79.1 Long term (current) use of non-steroidal anti-inflammatories (NSAID); Z99.3 Dependence on wheelchair
CPT/HCPCS: 36415; 71010; 73502; 73630; 76001; 80048; 80053; 82306; 82550; 83605; 83735; 85027; 85610; 85651; 85730; 86850; 86900; 86901; 86920; 87040; 87071; 87075; 87205; 87641; 90471; 90715; 96365; 96375; A4314; C1713; C1887; J0690; J1100; J2001; J2060; J2405; J2704; J3010; J7030; J7120; P9016; P9045; 99285-25